=== PATIENT | female | born 1945 | race Caucasian/White ===

== ENCOUNTER 2019-11-01 12:26 | Inpatient (IN) | payer OTHER ==
--- OUTSIDE RECORDS SUMMARY | 2019-11-01 12:29 | XMS REPORT | Summary of Care ---
:1945 Author Organization [facility] [place] [address] Care Team Providers Name Role Phone Unavailable Primary Care Provider Unavailable Reason for Referral Consult, Test & Treat (Routine) Status Reason Specialty Diagnoses / Referred By Referred To Procedures Contact Contact Pending Consult, Test, Endocrinology Diagnoses Eugene's disease (HCCode) Sandra Dalton Endocrinology and Treat Procedures [place] OFFICE OUTPATIENT NEW 30 MINUTES MD Mirna [address]; [address] [place] [phone] Phone: Fax: Consult, Test & Treat (Routine) Status Reason Specialty Diagnoses / Referred By Referred To Procedures Contact Contact Pending Consult, Test, Cardiology Diagnoses Atrial fibrillation, unspecified type (HCCode) Congestive heart failure, unspecified HF chronicity, unspecified heart failure type (HCCode) Dyspnea, unspecified type Crow Dalton Cardiology and Treat Procedures [place] OFFICE OUTPATIENT NEW 30 MINUTES MD Mirna [address] [place] [phone] Phone: Fax: Reason for Visit Reason Comments Establish Care Dizziness bloating, MARCUS Encounter Details Date Type Department Care Team Description 08/11/2019 Office Visit [facility]; Medicine Family MD Mirna Dizziness (bloating, Medicine [address] MARCUS ) [address] [place] [address] [place] [address] Allergies Active Allergy Reactions Severity Noted Date Comments Ambien 12/24/2011 Etodolac 12/19/2009 documented as of this encounter (statuses as of 08/12/2019) Medications Medication Sig Dispensed Refills Start End Date Status Date Flavoxate HCl Take by mouth. 0 Active (URISPAS PO) Meth-Hyo-M Bl-Na 1 tablet Every 8 90 Each 3 Active Phos-Ph Ruddy (URELLE) hours for 30 2 81 MG TABS days. Take 1 tab every 8 hours as needed Meth-Hyo-M Bl-Na 81 mg 3 times 270 Each 0 Active Phos-Ph Ruddy (URELLE) daily for 90 2 81 MG TABS days. Take 1 tab every 8 hours predniSONE 0 Active (DELTASONE) 5 MG 9 tablet digoxin (LANOXIN) 125 0 Active MCG tablet 9 sumatriptan (IMITREX) Take 100 mg by 0 Active 100 MG tablet mouth. furosemide (LASIX) 40 TAKE 1 TABLET BY 0 Active MG tablet MOUTH EVERY DAY 9 levothyroxine Take 75 mcg by 0 Active (SYNTHROID) 75 MCG mouth. tablet DILT-XR 180 MG XR TAKE 1 CAPSULE 3 Active capsule BY MOUTH EVERY 9 DAY metoprolol Take 100 mg by 0 Active (LOPRESSOR) 100 MG mouth. tablet ELIQUIS 5 MG TABS TAKE 1 TABLET BY 2 Active MOUTH TWICE A 9 DAY gabapentin 0 Active (NEURONTIN) 300 MG 6 capsule venlafaxine Take 150 mg by 0 Active (EFFEXOR-XR) 150 MG mouth. XR capsule aspirin EC 81 MG Take 81 mg by 0 Active tablet mouth. gabapentin Take by mouth. 0 08/11/20 Discontinued (NEURONTIN) 600 MG 19 tablet quetiapine (SEROQUEL) Take by mouth. 0 09/26/20 Discontinued 50 MG tablet 19 Polyethylene Glycol Take by mouth. 0 08/11/20 Discontinued 3350 (MIRALAX PO) [address] 1 Drop 0 08/11/20 Discontinued (PRED FORTE) 1 % into the right 19 ophthalmic suspension eye two times daily. sumatriptan (IMITREX) Take 100 mg by 0 08/11/20 Discontinued 100 MG tablet mouth once as 19 needed. metoprolol Take 50 mg by 0 08/11/20 Discontinued (TOPROL-XL) 50 MG XL mouth daily. 19 tablet ergotamine-caffeine Take 1 Tab by 0 08/11/20 Discontinued (CAFERGOT) 1-100 MG mouth every hour 19 per tablet as needed. dihydroergotamine Inject 1 mg into 0 08/11/20 Discontinued (DHE) 1 MG/ML the vein once. 19 injection tramadol (ULTRAM) 50 One by mouth 5 Tab 0 01/20/08/11/20 Discontinued MG tablet every 4-6 hours [address] 1 Drop 5 mL 2 08/11/20 Discontinued (DUREZOL) 0.05 % into the left 2 19 ophthalmic emulsion eye two times daily. besifloxacin Place 1 Drop 5 mL 1 08/11/20 Discontinued (BESIVANCE) 0.6 % into the left 2 19 ophthalmic suspension eye two times daily. Shake well before instillation ketorolac Place 1 Drop 1 Bottle 0 08/11/20 Discontinued tromethamine (ACULAR into the left 2 19 LS) 0.4 % ophthalmic eye two times solution daily. LOSARTAN POTASSIUM OR Take by mouth. 0 08/11/20 Discontinued [address] 1 Drop 5 mL 1 07/21/08/11/20 Discontinued (BESIVANCE) 0.6 % into the left 2 19 ophthalmic eye 3 times suspensionIndications daily. : Refractive error, Myopia, Regular astigmatism tramadol (ULTRAM) 50 Take 1 Tab by 5 Tab 0 08/11/20 Discontinued MG tabletIndications: mouth. Q 4-6 2 19 Refractive error, hours Myopia, Regular astigmatism methenamine Take 1 Tab by 360 Each 3 03/01/08/11/20 Discontinued (MANDELAMINE) 1 GM mouth 4 times 4 19 tablet daily as needed for Pain. Methenamine Hippurate Take 1 Tab by 180 Each 3 08/11/20 Discontinued 1 G TABS mouth two times 4 19 daily. loteprednol (LOTEMAX) 1 Drop four 5 mL 2 08/11/20 Discontinued 0.5 % ophthalmic times daily. 5 19 suspensionIndications : Refractive error, Pseudophakia, both eyes moxifloxacin 1 Drop 3 times 5 mL 6 08/11/20 Discontinued (VIGAMOX) 0.5 % daily. 5 19 ophthalmic solutionIndications: Refractive error, Pseudophakia, both eyes alprazolam (NIRAVAM) Bring on day of 1 Tab 0 08/11/20 Discontinued 0.5 MG dissolvable surgery. 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 Evans Neurologist Polypharmacy 08/11/2019 Overview: Can decrease gabapentin to BID . Other chronic pain 08/11/2019 Overview: consider switch from effexor to cymbalta Bradycardia 08/11/2019 Overview: suspect digitalis toxicity Non-intractable vomiting with nausea 08/11/2019 Overview: suspect digitalis toxicity Subconjunctival hematoma 02/20/2016 Urinary urgency 03/01/2014 After-cataract, obscuring vision 11/30/2013 Pseudophakia, both eyes 11/30/2013 S/P ASA/PRK (advanced surface ablation photorefractive keratectomy) 01/31/2012 documented as of this encounter (statuses as of 08/12/2019) Resolved Problems Problem Noted Date Resolved Date Other and combined forms of senile cataract 04/14/2012 11/22/2012 Pseudophakia 01/31/2012 05/25/2015 documented as of this encounter (statuses as of 08/12/2019) Immunizations Name Administration Dates Next Due Influenza Hd 08/11/2019 Pneumococcal 13-valent Conjugate Vaccine 08/11/2019 documented as of this encounter Social History Tobacco Use Types Packs/Day Years Used Date Never Smoker Smokeless Tobacco: Never Used Alcohol Use Drinks/Week oz/Week Comments No Sex Assigned at Date Recorded Not on file Job Start Date Occupation Industry Not on file Not on file Not on file Travel History Travel Start Travel End No recent travel history available. documented as of this encounter Last Filed Vital Signs Vital Sign Reading Time Taken Comments Blood Pressure 108/60 08/11/2019 9:33 AM CDT Pulse 44 08/11/2019 9:33 AM CDT Temperature 36.1 C (97 F) 08/11/2019 9:33 AM CDT Respiratory Rate 16 08/11/2019 9:33 AM CDT Oxygen Saturation - - Inhaled Oxygen Concentration - - Weight 59.4 kg (131 lb) 08/11/2019 9:33 AM CDT Height 162.6 cm (5' 4") 08/11/2019 9:33 AM CDT Body Mass Index 22.49 08/11/2019 9:33 AM CDT documented in this encounter Progress Notes Mirna Dalton MD - 08/11/2019 9:30 AM CDT Chief Complaint Patient presents with Establish Care Dizziness bloating, MARCUS PCP: No primary care provider on file. History of Present Illness: Pilar Bass is a 74 y.o. female who is here today to discuss the following concerns: New patient. She is here really for second opinion regarding her care. Friends with Marya Kennedy who referred her to me. She complains of a big deterioration in her health over the last year. IT started with a hospitalization for CHF and Afib last September. She was hospitalized in [place]. She was started on cardiac medications including toprol xl 100, Diltiazem XR 180 and furosemide 40 mg and digoxin 0.125mg . Dr. Ramirez is her plate cleaner . She reports extreme weakness and lighhtheadedness and shortness of breath with walking 25 feet. She denies any falls or syncope. She does get chest pains but stress test did not reveal any significant CAD She is on multiple other medications On Gabapentin and effexor xr since 1982 for migraine prophylaxis Hypertension for last 10-15 years Has had dyspnea . Recently getting out of breath after 25 feet. 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 There was no work up performed She was having nausea and vomiting with negative EGD No visits with results within 3 Month(s) from this visit. Latest known visit with results is: Office Visit on 06/07/2012 Component Date Value Ref Range Status COLOR UA 06/07/2012 Green/Blue YELLOW/STRAW In process CLARITY UA 06/07/2012 Clear CLEAR In process GLUCOSE UA 06/07/2012 Negative NEGATIVE In process BILIRUBIN UA 06/07/2012 Negative NEGATIVE In process KETONES UA 06/07/2012 Negative NEGATIVE In process SPECIFIC GRAVITY UA 06/07/2012 1.000* 1.005 - 1.035 In process BLOOD UA 06/07/2012 Negative NEGATIVE In process PH UA 06/07/2012 5.0 5 - 9 In process PROTEIN UA 06/07/2012 Negative NEGATIVE In process UROBILINOGEN UA 06/07/2012 0.02 E.U/DL NORMAL MG/DL In process LEUKOCYTE ESTERASE UA 06/07/2012 Negative NEGATIVE In process NITRITE UA 06/07/2012 Negative NEGATIVE In process ROS: Review of Systems Constitutional: Positive for diaphoresis, malaise/fatigue and weight loss (5 pounds since February ). Negative for chills and fever. HENT: Negative for congestion, ear pain, hearing loss and nosebleeds. Eyes: Positive for blurred vision. Hx. Cataract surgery Cardiovascular: Positive for chest pain (left . Radiating to left arm and neck. Stress Test Last Fall Dr. Ramirez . CHF, AFIB ) and palpitations. AFIB . Thursday felt heart race but pulse max 131 Gastrointestinal: Positive for abdominal pain, nausea (Since February) and vomiting (last episode 2 weeks ago ). Negative for blood in stool, constipation and diarrhea. EGD this summer GI Dr. Matute. Normal.. After this Eugene's suspected . Some improvement with prednisone Genitourinary: Negative for dysuria and hematuria. Recent UTI (bacteriuria) Musculoskeletal: Positive for back pain, joint pain and neck pain. Hands, knees Skin: Negative for rash. No bronze skin Neurological: Positive for dizziness (light headed ), tremors, sensory change ( both legs . Rt. to the knee and left hurts to thigh ), focal weakness (left leg ), weakness and headaches (daily). Negative for seizures and loss of consciousness. EDS recently last month Lumbar spine Dr. Schultz. Pain medicine Endo/Heme/Allergies: Prednisone started by PCP mfor possible Addisons Psychiatric/Behavioral: Positive for depression. Negative for memory loss and suicidal ideas. The patient is nervous/anxious and has insomnia. 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 Hospitalized to withdraw DATA Reciewed : Recent EGD gastritis, Recent labs, Hospital records. EKG performed this am shows digitalis effect vs strain pattern, Afib and bradycardia with rate of 44 Past Medical History/Past Social History/Family History: I have personally reviewed this patient's past medical history, social history, family history and have updated the computerized patient record accordingly. Past Medical History: Diagnosis Date Cataract Depression Hypertension Migraines Night sweat Pinched nerve Pinched nerve in Neck Past Surgical History: Procedure Laterality Date HX BACK SURGERY 10/2013 HX CATARACT REMOVAL HX GALLBLADDER SURGERY 2001 HX HAND SURGERY HX HYSTERECTOMY 1980 HX KNEE SURGERY 2008 HX PRK 07-23-2012 left eye HX PRK 2015 right eye [place] DISCISSION,2ND CATARACT,LASER Right 04/06/2014 VT EYE SURG ANT SGMT PROC UNLISTED 01-30-2012 CV PRK, right eye [place] REMV CATARACT EXTRACAP,INSERT LENS 05/27/2012 Social History Tobacco Use Smoking status: Never Smoker Smokeless tobacco: Never Used Substance Use Topics Alcohol use: No Drug use: No Current Outpatient Medications on File Prior to Visit Medication Sig Dispense Refill aspirin EC 81 MG tablet Take 81 mg by mouth. digoxin (LANOXIN) 125 MCG tablet DILT-XR 180 MG XR capsule TAKE 1 CAPSULE BY MOUTH EVERY DAY 3 ELIQUIS 5 MG TABS TAKE 1 TABLET BY MOUTH TWICE A DAY 2 Flavoxate HCl (URISPAS PO) Take by mouth. furosemide (LASIX) 40 MG tablet TAKE 1 TABLET BY MOUTH EVERY DAY 0 gabapentin (NEURONTIN) 300 MG capsule levothyroxine (SYNTHROID) 75 MCG tablet Take 75 mcg by mouth. Meth-Hyo-M Bl-Na Phos-Ph Ruddy (URELLE) 81 MG TABS 81 mg 3 times daily for 90 days. Take 1 tab every 8 hours 270 Each 0 Meth-Hyo-M Bl-Na Phos-Ph Ruddy (URELLE) 81 MG TABS 1 tablet Every 8 hours for 30 days. Take 1 tab every 8 hours as needed 90 Each 3 metoprolol (LOPRESSOR) 100 MG tablet Take 100 mg by mouth. predniSONE (DELTASONE) 5 MG tablet sumatriptan (IMITREX) 100 MG tablet Take 100 mg by mouth. venlafaxine (EFFEXOR-XR) 150 MG XR capsule Take 150 mg by mouth. No current facility-administered medications on file prior to visit. Medications/Allergies: reviewed and updated as needed at today's visit. Physical Examination: BP 108/60 (BP Location: left arm, Patient Position: Sitting, Cuff Size: regular ) | Pulse (!) 44 | Temp 97 F (36.1 C) (Oral) | Resp 16 | Ht 5' 4" ( 1.626 m) | Wt 131 lb (59.4 kg) | BMI 22.49 kg/m Nursing note and vital signs reviewed. Physical Exam Constitutional: She is oriented to person, place, and time and well-developed, well-nourished, and in no distress. No distress. HENT: Head: Normocephalic and atraumatic. Eyes: Conjunctivae and EOM are normal. Neck: Neck supple. No thyromegaly present. Cardiovascular: Normal heart sounds and intact distal pulses. Exam reveals no gallop and no frictionrub. No murmur heard. Bradycardia. Irregularly irregular rhythm Pulmonary/Chest: Effort normal and breath sounds normal. No respiratory distress. She has no wheezes. She has no rales. She exhibits no tenderness. Abdominal: Soft. Musculoskeletal: She exhibits no edema. Lymphadenopathy: She has no cervical adenopathy. Neurological: She is alert and oriented to person, place, and time. She has intact cranial nerves. She displays tremor. A sensory deficit is present. Gait abnormal. Decreased sensation both lower legs/ feet Skin: Skin is warm and dry. No rash noted. She is not diaphoretic. Psychiatric: Affect normal. Impression/Plan: Encounter Diagnosis and Orders ICD-10-CM 1. Dyspnea, unspecified type R06.00 AMB REF TO CARDIOLOGY [facility] 2. Atrial fibrillation, unspecified type (HCCode) I48.91 AMB REF TO CARDIOLOGY [facility] ELECTROCARDIOGRAM COMPLETE DIGOXIN LEVEL COMPREHENSIVE METABOLIC PANEL Appointment Oct 3 with [facility] cardiology. Question for Cardiology re need for digoxin 3. Congestive heart failure, unspecified HF chronicity, unspecified heart failure type (HCCode) I50.9 AMB REF TO CARDIOLOGY [facility] DIGOXIN LEVEL COMPREHENSIVE METABOLIC PANEL Request ECHO results 4. Need for influenza vaccination Z23 FLU VACCINE HIGH DOSE >65YO 5. 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 Tremor R25.[address] Evans Neurologist 7. Polypharmacy Z79.899 Can decrease gabapentin to BID . 8. Other chronic pain G89.29 consider switch from effexor to cymbalta 9. Need for pneumococcal vaccination Z23 PNEUMOCOCCAL CONJUGATED (PCV13) 10. Bradycardia R00.1 suspect digitalis toxicity 11. Non-intractable vomiting with nausea, unspecified vomiting type R11.2 suspect digitalis toxicity Please see AVS for patient instructions. All questions answered. Patient agrees with plan of care. Mirna Dalton MD Drug Abuse Technician [facility] HospitalElectronically signed by Mirna Dalton MD at 10:47 AM CDTdocumented in this encounter Plan of Treatment Date Type Specialty Care Team Description 08/18/2019 Office Visit Cardiology Cash Sahni MD [address] [address] Name Type Priority Associated Diagnoses Order Schedule DIGOXIN LEVEL Lab Routine Atrial Fibrillation, Ordered: 08/11/2019 Unspecified Type (Hccode) Congestive Heart Failure, Unspecified Hf Chronicity, Unspecified Heart Failure Type (Hccode) COMPREHENSIVE METABOLIC Lab Routine Atrial Fibrillation, Ordered: 2018 PANEL Unspecified Type (Hccode) Congestive Heart Failure, Unspecified Hf Chronicity, Unspecified Heart Failure Type (Hccode) Name Type Priority Associated Order Schedule Diagnoses AMB REF TO CARDIOLOGY Outpatient Referral Routine Atrial Ordered: [facility] Fibrillation, 08/11/2019 Unspecified Type (Hccode) Congestive Heart Failure, Unspecified Hf Chronicity, Unspecified Heart Failure Type (Hccode) Dyspnea, Unspecified Type AMB REF TO Outpatient Referral Routine Lincoln's disease Ordered: [facility]Y [facility] 08/11[facility]2019 Health Maintenance Due Date Last Done Comments MEDICARE AWV 1945 HEPATITIS C SCREENING 1963 OSTEOPOROSIS SCREENING 2010 MAMMOGRAM ANNUAL 12/17/2019 12/17/2018 FALL SCREEN 08/11/2020 08/11/2019, 08/11/2019 COLON CANCER SCREENING: COLONOSCOPY 11/16/2025 11/16/2015 TETANUS SHOT (ADULT) 11/16/2026 11/16/2016 PNEUMOVAX >=65 (PPSV23) Completed 10/13/2018 FLU VACCINE > 6 MONTHS Completed 08/11/2019, 08/11/2019 PREVNAR >=65 (PCV13) Completed 08/11/2019, 08/11/2019 documented as of this encounter Implants Implanted Type Area Registered Nursing Professor Device Shelf Model / Serial Identifier Expiration / Lot Date Iol - [id number] - [id number] LENS Left: Eye JOHN 06/15/2016 21.0 D / Implanted: Qty: 1 on 05/27/2012 at [facility] [id number] / documented as of this encounter Procedures Procedure Name Priority Date/Time Associated Comments Diagnosis ELECTROCARDIOGRAM Routine 08/11/2019 10:46 Atrial Results for this COMPLETE AM CDT fibrillation, procedure are in unspecified type the results (HCCode) section. documented in this encounter Results ELECTROCARDIOGRAM COMPLETE (08/11/2019 10:46 AM CDT) Specimen Narrative Performed At documented in this encounter Visit Diagnoses Diagnosis Dyspnea, unspecified type - Primary Atrial fibrillation, unspecified type (HCCode) Congestive heart failure, unspecified HF chronicity, unspecified heart failure type (HCCode) Need for influenza vaccination Need for prophylactic vaccination and inoculation against influenza Lincoln's disease (HCCode) Glucocorticoid deficiency Tremor Abnormal involuntary movements Polypharmacy Issue of repeat prescriptions Other chronic pain Need for pneumococcal vaccination Need for prophylactic vaccination against streptococcus pneumoniae ( pneumococcus) Bradycardia Other specified cardiac dysrhythmias Non-intractable vomiting with nausea, unspecified vomiting type documented in this encounter Insurance Payer Benefit Plan / Subscriber ID Effective Dates Phone Address Type Group [employer] MED[employer]ARE PLAN PPO xxxxxxxx 2013-Present [address] [place] [address] ([place]) [address] [place] [id number] documented as of this encounter
--- OUTSIDE RECORDS SUMMARY | 2019-11-01 12:29 | XMS REPORT ---
:1945 [facility] Address [address] [place] [address] Care Team Providers Name Role Phone Unavailable Unavailable Unavailable Payers Payer Name Policy Type Policy Number Effective Date Expiration Date Problems This patient has no known problems. Allergies, Adverse Reactions, Alerts Allergy Allergy Status Severity Reaction(s) Onset Inactive Treating Comments Name Type Date Date Clinician etodolac DA Active U 2014-01 00:00:0 0 zolpidem DA Active U 2014-01 00:00:0 0 Medications This patient has no known medications. Results Test Description Test Time Test Comments Text Results Atomic Results Result Comments CBC W/AUTO DIFF 2019-05-07 06:27:00 Test Item Value Reference Range Comments WHITE BLOOD CELL (test code=WBC) 9.5 K/MM3 3.8-9.8 RED BLOOD CELL (test code=RBC) 3.33 M/MM3 3.58-4.97 HEMOGLOBIN (test code=HGB) 11.3 G/DL 11.2-14.9 HEMATOCRIT (test code=HCT) 36.5 % 33.2-43.5 MEAN CELL VOLUME (test code=MCV) 110 fL 80.7-99.1 MEAN CELL HGB (test code=MCH) 33.9 pg 27.0-34.1 MEAN CELL HGB CONCETRATION (test code=MCHC) 31.0 % 32.2-35.7 RED CELL DISTRIBUTION WIDTH (test code=RDW) 18.6 % 12.1-15.2 PLATELET COUNT (test code=PLT) 168 K/MM3 129-368 MEAN PLATELET VOLUME (test code=MPV) 10.4 fl 7.4-10.4 NEUTROPHIL % (test code=NT%) 56.0 % 43-75 IMMATURE GRANULOCYTE % (test code=IG%) 0.4 % 0.0-2.0 LYMPHOCYTE % (test code=LY%) 32.2 % 14-44 MONOCYTE % (test code=MO%) 7.8 % 4-13 EOSINOPHIL % (test code=EO%) 3.1 % 0-6 BASOPHIL % (test code=BA%) 0.5 % 0-2 NUCLEATED RBC % (test code=NRBC%) 1.5 % 0-1.0 NEUTROPHIL # (test code=NT#) 5.29 K/mm3 2.0-7.6 IMMATURE GRANULOCYTE # (test code=IG#) 0.04 x10 3/uL 0-0.03 LYMPHOCYTE # (test code=LY#) 3.05 K/mm3 1.0-3.8 MONOCYTE # (test code=MO#) 0.74 K/mm3 0.1-0.8 EOSINOPHIL # (test code=EO#) 0.29 K/mm3 0.0-0.2 BASOPHIL # (test code=BA#) 0.05 K/mm3 0.0-0.2 NUCLEATED RBC # (test code=NRBC#) 0.14 K/mm3 0.0-0.1 NUCLEATED RED BLOOD CELL (test code=NRBC) 3 0-0 DIFFERENTIAL [id number] 06:27:00 Test Item Value Reference Range Comments RBC MORPHOLOGY REQUIRED (test code=RBCM) ABNORMAL POIKILOCYTOSIS (test code=POIK) FEW NONE ANISOCYTOSIS (test code=ANISO) MODERATE NONE MACROCYTOSIS (test code=MACR) FEW NONE PLATELET ESTIMATE (test code=PLTEST) ADEQUATE ADEQUATE PLATELET MORPHOLOGY (test code=PLTMORPH) NORMAL NORMAL BASIC METABOLIC [id number] 06:14:00 Test Item Value Reference Range Comments SODIUM (test code=NA) 145 MMOL/L 137-145 POTASSIUM (test code=K) 5.1 MMOL/L 3.5-5.1 CHLORIDE (test code=CL) 106 MMOL/L 98-107 CARBON DIOXIDE (test code=CO2) 26 MMOL/L 22-30 ANION GAP (test code=GAP) 18 MMOL/L 14-24 GLUCOSE (test code=GLU) 96 MG/DL 74-106 BLOOD UREA NITROGEN (test 30 MG/DL 7-17 code=BUN) GLOMERULAR FILTRATION RATE 37 Reporting units: ml/min/1.73 (test code=GFR) m2 (Modified MDRD Formula)Reference Range: > or=60 ml/min/1.73 m2 CREATININE (test code=CREAT) 1.40 MG/DL 0.52-1.04 CALCIUM (test code=CA) 9.9 MG/DL 8.4-10.2 LIPID PROFILE (CORONARY RISK)2019-05-07 06:14:00 Test Item Value Reference Range Comments TRIGLYCERIDES (test code=TRIG) 176 MG/DL TRIGLYCERIDES REFERENCE RANGE:Normal: <150 mg/dLBorderline High: 150-199 mg/dLHigh: 200-499 mg/dLVery High: >=500 mg/dL CHOLESTEROL (test code=CHOL) 156 MG/DL <200 HDL CHOLESTEROL (test 34 MG/DL 40-59 code=HDL) LIPOPROTEIN LDL (test 109 MG/DL 0-99 code=LDL) OPTIMAL.........<100 mg/dLNEAR OPTIMAL/ABOVE OPTIMAL.........100-129 mg/dL BORDERLINE HIGH.........130-159 mg/dL HIGH.........160-189 mg/dL VERY HIGH.........>/=190 mg/dL [id number] 06:14:00 Test Item Value Reference Range Comments MAGNESIUM (test code=MAG) 2.3 MG/DL 1.6-2.3 BASIC METABOLIC [id number] 06:04:00 Test Item Value Reference Range Comments SODIUM (test code=NA) 145 MMOL/L 137-145 POTASSIUM (test code=K) 5.1 MMOL/L 3.5-5.1 CHLORIDE (test code=CL) 106 MMOL/L 98-107 CARBON DIOXIDE (test code=CO2) 26 MMOL/L 22-30 ANION GAP (test code=GAP) 18 MMOL/L 14-24 GLUCOSE (test code=GLU) 96 MG/DL 74-106 BLOOD UREA NITROGEN (test 30 MG/DL 7-17 code=BUN) GLOMERULAR FILTRATION RATE 37 Reporting units: ml/min/1.73 (test code=GFR) m2 (Modified MDRD Formula)Reference Range: > or=60 ml/min/1.73 m2 CREATININE (test code=CREAT) 1.40 MG/DL 0.52-1.04 CALCIUM (test code=CA) 9.9 MG/DL 8.4-10.2 LIPID PROFILE (CORONARY RISK)2019-05-07 06:04:00 Test Item Value Reference Range Comments TRIGLYCERIDES (test code=TRIG) 176 MG/DL TRIGLYCERIDES REFERENCE RANGE:Normal: <150 mg/dLBorderline High: 150-199 mg/dLHigh: 200-499 mg/dLVery High: >=500 mg/dL CHOLESTEROL (test code=CHOL) 156 MG/DL <200 HDL CHOLESTEROL (test 34 MG/DL 40-59 code=HDL) LIPOPROTEIN LDL (test MG/DL 0-99 code=LDL) [id number] 06:04:00 Test Item Value Reference Range Comments MAGNESIUM (test code=MAG) 2.3 MG/DL 1.6-2.3 PROTHROMBIN [id number] 05:56:00 Test Item Value Reference Range Comments PROTHROMBIN TIME PATIENT (test 10.4 SECONDS 9.6-11.6 code=PTP) INTERNATIONAL NORMAL RATIO 1.0 0.8-1.1 The INR is to be used only (test code=INR) for monitoring oral anticoagulanttherapy. INDICATION INR VALUE 1. Prophylaxis, deep venous thrombosis, including high risk surgery. 2.0 - 3.0 2. Prophylaxis, deep venous thrombosis, hip surgery, treatment for deep venous thrombosis or pulmonary prevention of systemic embolism in patients with valvular heart disease, atrial fibrillation, tissue heart valve, or acute myocardial infarction. 2.0 - 3.0 3. Mechanical prosthesis heart valves, recurrent systemic embolism. 3.0 - 4.5 PTT [id number] 05:56:00 Test Item Value Reference Range Comments PTT ACTIVATED (test code=APTT) 23.1 SECONDS 22.0-33.0 CBC W/AUTO [id number] 05:40:00 Test Item Value Reference Range Comments WHITE BLOOD CELL (test code=WBC) 9.5 K/MM3 3.8-9.8 RED BLOOD CELL (test code=RBC) 3.33 M/MM3 3.58-4.97 HEMOGLOBIN (test code=HGB) 11.3 G/DL 11.2-14.9 HEMATOCRIT (test code=HCT) 36.5 % 33.2-43.5 MEAN CELL VOLUME (test code=MCV) 110 fL 80.7-99.1 MEAN CELL HGB (test code=MCH) 33.9 pg 27.0-34.1 MEAN CELL HGB CONCETRATION (test code=MCHC) 31.0 % 32.2-35.7 RED CELL DISTRIBUTION WIDTH (test code=RDW) 18.6 % 12.1-15.2 PLATELET COUNT (test code=PLT) 168 K/MM3 129-368 MEAN PLATELET VOLUME (test code=MPV) 10.4 fl 7.4-10.4 NEUTROPHIL % (test code=NT%) 56.0 % 43-75 IMMATURE GRANULOCYTE % (test code=IG%) 0.4 % 0.0-2.0 LYMPHOCYTE % (test code=LY%) 32.2 % 14-44 MONOCYTE % (test code=MO%) 7.8 % 4-13 EOSINOPHIL % (test code=EO%) 3.1 % 0-6 BASOPHIL % (test code=BA%) 0.5 % 0-2 NUCLEATED RBC % (test code=NRBC%) 1.5 % 0-1.0 NEUTROPHIL # (test code=NT#) 5.29 K/mm3 2.0-7.6 IMMATURE GRANULOCYTE # (test code=IG#) 0.04 x10 3/uL 0-0.03 LYMPHOCYTE # (test code=LY#) 3.05 K/mm3 1.0-3.8 MONOCYTE # (test code=MO#) 0.74 K/mm3 0.1-0.8 EOSINOPHIL # (test code=EO#) 0.29 K/mm3 0.0-0.2 BASOPHIL # (test code=BA#) 0.05 K/mm3 0.0-0.2 NUCLEATED RBC # (test code=NRBC#) 0.14 K/mm3 0.0-0.1 DIFFERENTIAL [id number] 05:40:00 Test Item Value Reference Range Comments RBC MORPHOLOGY REQUIRED (test code=RBCM) PLATELET ESTIMATE (test code=PLTEST) ADEQUATE PLATELET MORPHOLOGY (test code=PLTMORPH) NORMAL CBC W/AUTO [id number] 05:40:00 Test Item Value Reference Range Comments WHITE BLOOD CELL (test code=WBC) 9.5 K/MM3 3.8-9.8 RED BLOOD CELL (test code=RBC) 3.33 M/MM3 3.58-4.97 HEMOGLOBIN (test code=HGB) 11.3 G/DL 11.2-14.9 HEMATOCRIT (test code=HCT) 36.5 % 33.2-43.5 MEAN CELL VOLUME (test code=MCV) 110 fL 80.7-99.1 MEAN CELL HGB (test code=MCH) 33.9 pg 27.0-34.1 MEAN CELL HGB CONCETRATION (test code=MCHC) 31.0 % 32.2-35.7 RED CELL DISTRIBUTION WIDTH (test code=RDW) 18.6 % 12.1-15.2 PLATELET COUNT (test code=PLT) 168 K/MM3 129-368 MEAN PLATELET VOLUME (test code=MPV) 10.4 fl 7.4-10.4 NEUTROPHIL % (test code=NT%) 56.0 % 43-75 IMMATURE GRANULOCYTE % (test code=IG%) 0.4 % 0.0-2.0 LYMPHOCYTE % (test code=LY%) 32.2 % 14-44 MONOCYTE % (test code=MO%) 7.8 % 4-13 EOSINOPHIL % (test code=EO%) 3.1 % 0-6 BASOPHIL % (test code=BA%) 0.5 % 0-2 NUCLEATED RBC % (test code=NRBC%) 1.5 % 0-1.0 NEUTROPHIL # (test code=NT#) 5.29 K/mm3 2.0-7.6 IMMATURE GRANULOCYTE # (test code=IG#) 0.04 x10 3/uL 0-0.03 LYMPHOCYTE # (test code=LY#) 3.05 K/mm3 1.0-3.8 MONOCYTE # (test code=MO#) 0.74 K/mm3 0.1-0.8 EOSINOPHIL # (test code=EO#) 0.29 K/mm3 0.0-0.2 BASOPHIL # (test code=BA#) 0.05 K/mm3 0.0-0.2 NUCLEATED RBC # (test code=NRBC#) 0.14 K/mm3 0.0-0.1 DIFFERENTIAL [id number] 05:40:00 Test Item Value Reference Range Comments RBC MORPHOLOGY REQUIRED (test code=RBCM) PLATELET ESTIMATE (test code=PLTEST) ADEQUATE PLATELET MORPHOLOGY (test code=PLTMORPH) NORMAL
--- OUTSIDE RECORDS SUMMARY | 2019-11-01 12:29 | XMS REPORT | Summary of Care ---
:1945 Author Organization [facility] - [facility] Address [address] [place] [address] Care Team Providers Name Role Phone Adryan Breen MD Primary Care Provider Reason for Referral MRI/CAT Scan (STAT) Status Reason Specialty Diagnoses / Referred By Referred To Procedures Contact Contact New Request Diagnostic Diagnoses SOB (shortness of breath) Ben Meeks, Radiology Procedures CT HEAD WO CONTRAST [address] [place], [place] [id number] MRI/CAT Scan (STAT) Status Reason Specialty Diagnoses / Referred By Referred To Procedures Contact Contact New Request Diagnostic Diagnoses SOB (shortness of breath) Ben Meeks, Radiology Procedures CT HEAD WO CONTRAST [address] [place] [address] Radiology Services (STAT) Status Reason Specialty Diagnoses / Referred By Referred To Procedures Contact Contact New Request Diagnostic Diagnoses SOB (shortness of breath) Ben Meeks, Radiology Procedures XR CHEST 1 KYM HORNER [address] [place] [address] Radiology Services (STAT) Status Reason Specialty Diagnoses / Referred By Referred To Procedures Contact Contact New Request Diagnostic Diagnoses SOB (shortness of breath) Ben Meeks, Radiology Procedures XR CHEST 1 KYM HORNER [address] [place] [address] Reason for Visit Reason Comments Shortness of Breath Chest Pain Auth/Cert Status Reason Specialty Diagnoses / Referred By Referred To Procedures Contact Contact Emergency Medicine Diagnoses SOB [facility] [address] [place] [address] [place] [address] Encounter Details Date Type Department Care Team Description 07/24/2019 Emergency [facility] Ben Meeks MD SOB (shortness of breath) (Primary Dx); Department [address] [facility] Dizziness; [address] [facility] [address] Urinary tract infection [place] [address] [place] [address] [phone] Allergies Active Allergy Reactions Severity Noted Date Comments Zolpidem Tartrate Other - See comments 02/18/2016 Disoriented Etodolac Itching 02/18/2016 documented as of this encounter (statuses as of 07/24/2019) Medications Medication Sig Dispensed Refills Start Date End Date Status sumatriptan (IMITREX) Take 100 mg by 0 Active 100 mg tablet mouth. doxazosin (CARDURA) 2 Take 2 mg by 3 01/24/2016 Active mg tablet mouth at bedtime. gabapentin (NEURONTIN) 2 01/28/2016 Active 300 mg capsule venlafaxine XR (EFFEXOR Take 150 mg by 0 Active XR) 150 mg 24 hr mouth daily with capsule breakfast. doxazosin (CARDURA) 2 Take 2 mg by 0 Active mg tablet mouth daily. CALCIUM Take by mouth. 0 Active CARBONATE/VITAMIN D3 (VITAMIN D-3 ORAL) MAGNESIUM ORAL Take by mouth. 0 Active promethazine-codeine Take 5 mL by 120 mL 0 01/03/2018 Active 6.25-10 mg/5 mL syrup mouth 4 (four) times daily as needed for Cough. sod vywqa-wiptfs-gbllfa Use 1 Bottle in 1 Each 0 01/03/2018 Active bottle (NEILMED SINUS each nostril 2 RINSE COMPLETE) pkdv (two) times daily. Use in hot shower 1 hour before bedtime multivitamin tablet Take 1 tablet by 0 Active mouth daily. metoprolol tartrate 100 Take 100 mg by 0 Active mg tablet mouth 2 (two) times daily. diltiazem XR (DILT-XR) Take 180 mg by 0 Active 180 mg 24 hr capsule mouth daily. aspirin 81 mg chewable Take 81 mg by 0 Active tablet mouth daily. levothyroxine 75 mcg Take 75 mcg by 0 Active tablet mouth every morning. furosemide 40 mg tablet Take 40 mg by 0 Active mouth every other day. Hydrocodone-Acetaminoph Take 1 tablet by 0 Active en 7.5-300 mg tablet mouth 2 (two) times daily. apixaban (ELIQUIS) 5 mg Take 5 mg by 0 Active tablet mouth 2 (two) times daily. amoxicillin 500 mg Take 1 capsule 15 capsule 0 07/24/2019 Active capsuleIndications: by mouth 3 Urinary tract infection (three) times without hematuria, site daily. unspecified documented as of this encounter (statuses as of 07/24/2019) Active Problems Problem Noted Date Acute diastolic CHF (congestive heart failure) 10/13/2018 Atrial fibrillation with RVR 10/13/2018 CHF (congestive heart failure) 10/10/2018 Hip pain, right 02/18/2016 documented as of this encounter (statuses as of 07/24/2019) Immunizations Name Administration Dates Next Due Pneumococcal Polysaccharide, PPSV23 (PNEUMOVAX) 10/13/2018 documented as of this encounter Social History Tobacco Use Types Packs/Day Years Used Date Never Smoker Smokeless Tobacco: Never Used Alcohol Use Drinks/Week oz/Week Comments Not Asked 0 Standard drinks or equivalent 0.0 Sex Assigned at Date Recorded Not on file Job Start Date Occupation Industry Not on file Not on file Not on file Travel History Travel Start Travel End No recent travel history available. documented as of this encounter Last Filed Vital Signs Vital Sign Reading Time Taken Comments Blood Pressure 152/97 07/24/2019 3:15 PM CDT Pulse 68 07/24/2019 3:15 PM CDT Temperature 36.9 C (98.5 F) 07/24/2019 12:48 PM CDT Respiratory Rate 13 07/24/2019 2:20 PM CDT Oxygen Saturation 96% 07/24/2019 2:20 PM CDT Inhaled Oxygen Concentration - - Weight 56.7 kg (125 lb) 07/24/2019 12:48 PM CDT Height - - Body Mass Index 21.46 04/15/2019 11:00 AM CDT documented in this encounter Discharge Instructions InstructionsBen Meeks MD - 07/24/2019 RETURN FOR ANY QUESTIONS OR CONCERNS Today you were seen by Ben Meeks Jr., MD You were seen today for Chief Complaint Patient presents with Shortness of Breath Chest Pain Your ER diagnosis was ICD-10-CM ICD-9-CM 1. SOB (shortness of breath) R06.02 786.05 2. Dizziness R42 780.4 NO LIFE-THREATENING FINDINGS ON TODAY'S EXAM. YOUR PRESCRIPTIONS : Check out [employer] for medication discounts Medication List ASK your doctor about these medications aspirin 81 mg chewable tablet DILT-XR 180 mg 24 hr capsule Generic drug: diltiazem XR * doxazosin 2 mg tablet Commonly known as: CARDURA * doxazosin 2 mg tablet Commonly known as: CARDURA ELIQUIS 5 mg tablet Generic drug: apixaban furosemide 40 mg tablet Commonly known as: LASIX gabapentin 300 mg capsule Commonly known as: NEURONTIN Hydrocodone-Acetaminophen 7.5-300 mg tablet Commonly known as: XODOL 7.5/300 levothyroxine 75 mcg tablet Commonly known as: SYNTHROID MAGNESIUM ORAL metoprolol tartrate 100 mg tablet Commonly known as: LOPRESSOR multivitamin tablet promethazine-codeine 6.25-10 mg/5 mL syrup Commonly known as: PHENERGAN with CODEINE Take 5 mL by mouth 4 (four) times daily as needed for Cough. sod ceexx-rykgfb-pkpaod bottle Pkdv Commonly known as: NEILMED SINUS RINSE COMPLETE Use 1 Bottle in each nostril 2 (two) times daily. Use in hot shower 1 hour before bedtime sumatriptan 100 mg tablet Commonly known as: IMITREX venlafaxine XR 150 mg 24 hr capsule Commonly known as: EFFEXOR XR VITAMIN D-3 ORAL * This list has 2 medication(s) that are the same as other medications prescribed for you. Read thedirections carefully, and ask your doctor or other care provider to review them with you. ER precautions and follow up : 1. Return to ER if your symptoms should worsen or fail to improve within 72 hours. 2. The care provided in the emergency room was for acute problems only. 3. You should follow up with your primary care provider within 72 hours. 4. Fill and take all your medications as prescribed. 5. Make sure you are staying adequately hydrated. Busque attencion immediatamente si usted tiene los sitomas sigue, vuelve peor o si hay sitomas nuevas o para cualquiera preoccupacion incluyendo dolor del pecho , falta aire, se siente debile, mas fievre, mas dolor, nausea, vomitando, sangrando que no es normal, confusion, baja or pierdas conciencia. MAY FOLLOW-UP WITH A PROVIDER OF YOUR CHOICE, SUCH : 1. A PHYSICIAN OF YOUR CHOICE 2. [facility], . LOCATIONS IN [facility] 3. [facility], [address], [place]; [phone] OR, IF YOU WISH TO FOLLOW-UP WITHIN THE [facility], MAY TRY THESE OPTIONS (CLINIC APPOINTMENTS AVAILABLE ON [id number] BASIS): 1. SCHEDULE AN APPOINTMENT ONLINE AT WWW.[facility] 2. OR CALL THE [facility] ACCESS CENTER AT OR 3. OR CALL YOUR [facility] PHYSICIAN'S OFFICE DIRECTLY IF YOU ARE ALREADY AN ESTABLISHED [facility] PATIENT. [facility] RETURN TO WORK / SCHOOL EXCUSE Pilar Bass WAS SEEN IN THE ER AND DISCHARGED 07/24/2019 TODAY, 3:19 PM & May return to Work / School / Incarceration on X with activity as tolerated indicated below. ___The following limitations apply until pt is seen by Physician and cleared to return to normal activity. _X_ Off for two days and return to activity as tolerated at work or school ___ No Sports ___ No work ___ Do not return until fever free for 24 hours. ___ No school BEN MEEKS Jr., MD [facility] EMERGENCY DEPRTMENT [address] [place] [address] [place] [address] ### The patient may have been given Narcotic pain medications during their stay in the ED that may show up on a Drug Screen. The hospital discharge paper work will identify these medications. AttachmentsThe following attachments cannot be sent through Care Everywhere.Dizziness, Uncertain Cause ([place])Bladder Infection, Female (Adult ) ([place])Urinary Tract Infections in Women ([place])documented in this encounter Plan of Treatment Health Maintenance Due Date Last Done Comments HEPATITIS C (HCV) SCREEN 1945 DTaP,Tdap,and Td Vaccines (1 - Tdap) 1964 MAMMOGRAM 1985 COLONOSCOPY 1995 Zoster Recombinant Vaccine (SHINGRIX) (1 of 2) 1995 Medicare Wellness Visit 2010 INFLUENZA VACCINE (#1) 2019 PNEUMOCOCCAL VACCINES 65+ (2 of 2 - PCV13) 10/13/2019 10/13/2018 Osteoporosis Screening Completed 04/06/2019 documented as of this encounter Procedures Procedure Name Priority Date/Time Associated Comments Diagnosis URINALYSIS STAT 07/24/2019 2:16 SOB (shortness of Results for this PM CDT breath) procedure are in the results section. CT HEAD WO CONTRAST STAT 07/24/2019 1:37 SOB (shortness of Results for this PM CDT breath) procedure are in the results section. XR CHEST 1 VW STAT 07/24/2019 1:32 SOB (shortness of Results for this PM CDT breath) procedure are in the results section. DIGOXIN STAT 07/24/2019 1:21 SOB (shortness of Results for this PM CDT breath) procedure are in the results section. CBC WITH DIFFERENTIAL STAT 07/24/2019 1:03 SOB (shortness of Results for this PM CDT breath) procedure are in the results section. ACTIVATED PARTIAL STAT 07/24/2019 1:03 SOB (shortness of Results for this THRMPLAS [place] PM CDT breath) procedure are in the results section. PROTHROMBIN TIME / STAT 07/24/2019 1:03 SOB (shortness of Results for this INR PM CDT breath) procedure are in the results section. CBC WITH DIFF Routine 07/24/2019 1:03 SOB (shortness of Results for this PM CDT breath) procedure are in the results section. COMP. METABOLIC PANEL STAT 07/24/2019 1:03 SOB (shortness of Results for this (36528) PM CDT breath) procedure are in the results section. TROPONIN I STAT 07/24/2019 1:03 SOB (shortness of Results for this PM CDT breath) procedure are in the results section. LIPASE STAT 07/24/2019 1:03 SOB (shortness of Results for this PM CDT breath) procedure are in the results section. EKG-12 LEAD STAT 07/24/2019 12:56 PM CDT documented in this encounter Results URINALYSIS (07/24/2019 2:16 PM CDT) APPEARANCE Clear Clear [facility] COLOR Confluence (A) Yellow [facility] PH 7.0 4.8 - 8.0 [facility] SP GRAVITY <=1.005 1.003 - 1.030 [facility] GLU U QUAL Negative Negative [facility] BLOOD Negative Negative [facility] KETONES Negative Negative [facility] PROTEIN Negative Negative [facility] UROBILIN 1.0 mg/dL 0-1.0 mg/dL [facility] BILIRUBIN Negative Negative [facility] NITRITE Positive (A) Negative [facility] LEUK GLORIA Negative Negative [facility] RBC/HPF 0 0 - 3 HPF [facility] WBC/HPF 0 0 - 5 HPF [facility] BACTERIA Negative Negative [facility] AMORPHOUS Trace HPF [facility] SQ EPITH 2 HPF [facility] Specimen Urine - URINE, CLEAN CATCH Performing Organization Address City/State/Zipcode Phone Number [facility] CLIA: [id number], [address] [place] [address] HEAD WO CONTRAST (07/24/2019 1:37 PM CDT) Specimen Impressions Performed At PACS/VR/DOSE No acute intracranial abnormality. I, Josias Corbett MD., have reviewed this study and agree with the above report. Narrative Performed At CT HEAD WO CONTRAST PACS/VR/DOSE HISTORY: Dizziness, persistent/recurrent, cardiac or vascular cause suspected COMPARISON: None TECHNIQUE: Noncontrast CT imaging of the head was performed and coronal and sagittal reconstructions were obtained and reviewed. FINDINGS: The ventricles and cerebral sulci are normal in caliber and configuration. No hydrocephalus, midline shift or pathological extra-axial fluid collection is present. Prominent subarachnoid spaces are seen. The basal cisterns are unremarkable. There is no acute intracranial hemorrhage or significant mass effect. Scattered periventricular and deep white matter hypoattenuating foci represent chronic microvascular ischemic changes. The archibald-white matter differentiation is preserved. Left sphenoid sinus retention cyst noted The mastoid air cells and remaining paranasal air sinuses are clear. The calvarium and central skull base are unremarkable. Procedure Note [facility], Radiant Results Inft User - 07/24/2019 2:[address] HEAD WO CONTRAST HISTORY: Dizziness, persistent/recurrent, cardiac or vascular cause suspected COMPARISON: None TECHNIQUE: Noncontrast CT imaging of the head was performed and coronal and sagittal reconstructions were obtained and reviewed. FINDINGS: The ventricles and cerebral sulci are normal in caliber and configuration. No hydrocephalus, midline shift or pathological extra-axial fluid collection is present. Prominent subarachnoid spaces are seen. The basal cisterns are unremarkable. There is no acute intracranial hemorrhage or significant mass effect. Scattered periventricular and deep white matter hypoattenuating foci represent chronic microvascular ischemic changes. The archibald-white matter differentiation is preserved. Left sphenoid sinus retention cyst noted The mastoid air cells and remaining paranasal air sinuses are clear. The calvarium and central skull base are unremarkable. IMPRESSION No acute intracranial abnormality. IJosias MD., have reviewed this study and agree with the above report. Performing Organization Address City/State/[facility] Phone Number PACS/VR/DOSE XR CHEST 1 VW (07/24/2019 1:32 PM CDT) Specimen Impressions Performed At PACS/VR/DOSE No acute cardiopulmonary abnormality. Chely Manzanares MD., have reviewed this study and agree with the above report. Narrative Performed At EXAM: XR CHEST 1 VW PACS/VR/DOSE HISTORY: shortness of breath COMPARISON: Chest x-ray 10/05/2018 FINDINGS: The lungs are clear. No focal consolidation, pleural effusion or pneumothorax is seen. The cardiac silhouette is normal in size. No acute bony abnormality. Changes of ACDF. Procedure Note [facility], Radiant Results Inft User - 07/24/2019 1:40 PM CDT EXAM: XR CHEST 1 VW HISTORY: shortness of breath COMPARISON: Chest x-ray 10/05/2018 FINDINGS: The lungs are clear. No focal consolidation, pleural effusion or pneumothorax is seen. The cardiac silhouette is normal in size. No acute bony abnormality. Changes of ACDF. IMPRESSION No acute cardiopulmonary abnormality. Sidney Manzanares MD., have reviewed this study and agree with the above report. Performing Organization Address City/State/[facility]ode Phone Number PACS/VR/DOSE DIGOXIN (07/24/2019 1:21 PM CDT) DIGOXIN 1.5 0.8 - 1.6 ng/mL [facility] Specimen Blood - VENOUS Narrative Performed At Arrythmias:1.5 - 2.0 ng/mL [facility] Toxic Range: Greater than or equal to 2.4 ng/mL Performing Organization Address City/State/Zipcode Phone Number [facility] CLIA: [id number], [address] [place] [address] CBC WITH DIFFERENTIAL (07/24/2019 1:03 PM CDT) WBC 14.20 (H) 4.30 - 11.10 [facility] 10*3/L HOSPITAL LAB[facility]ORY RBC 3.64 (L) 3.93 - 5.25 [facility] 10*6/L [facility] HGB 11.6 11.6 - 15.0 [facility] g/dL [facility] HCT 38.7 35.7 - 45.2 % [facility] MCV 106.3 (H) 80.6 - 95.5 fL [facility] MCH 31.9 25.9 - 32.8 pg [facility] MCHC 30.0 (L) 31.6 - 35.1 [facility] g/dL [facility] RDW-SD 85.7 (H) 39.0 - 49.9 fL [facility] RDW-CV 22.0 (H) 12.0 - 15.5 % [facility] PLT 197 166 - 358 [facility] 10*3/L [facility] MPV 9.9 9.5 - 12.9 fL [facility] NRBC/100 WBC 0.4 0.0 - 10.0 /100 [facility] WBCs [facility] NRBC x10^3 0.05 10*3/L [facility] GRAN MAT (NEUT) % 75.3 % [facility] IMM GRAN % 1.10 % [facility] LYMPH % 18.0 % [facility] MONO % 5.2 % [facility] EOS % 0.3 % [facility] BASO % 0.1 % [facility] GRAN MAT x10^3(ANC) 10.69 (H) 1.88 - 7.09 [facility] 10*3/uL HOSPITAL LAB[facility]ORY IMM GRAN x10^3 0.15 (H) 0.00 - 0.06 [facility] 10*3/uL [facility]ITAL [facility] LYMPH x10^3 2.56 1.32 - 3.29 [facility] 10*3/uL HOSPITAL [facility] MONO x10^3 0.74 0.33 - 0.92 [facility] 10*3/uL [facility] EOS x10^3 0.04 0.03 - 0.39 [facility] 10*3/uL [facility] BASO x10^3 <0.03 0.01 - 0.07 [facility] 10*3/uL [facility] Specimen Blood - VENOUS Performing Organization Address City/[facility] Cent[facility]ode Phone Number [facility] CLIA: [id number], [address] [place] [address] LIPASE, SERUM (07/24/2019 1:03 PM CDT) LIPASE 333 (H) 0 - 220 U/L [facility] Specimen Blood - VENOUS Performing Organization Address [facility] Centerconh Phone Number [facility] CLIA: [id number], [address] [place] [address] COMP. METABOLIC PANEL (12623) (07/24/2019 1:03 PM CDT) NA 142 135 - 145 [facility] mmol/L [facility] K 4.0 3.5 - 5.0 [facility] mmol/L [facility] CL 103 98 - 108 mmol/L [facility] CO2 TOTAL 27 23 - 31 mmol/L [facility] AGAP 12 2 - 16 [facility] BUN 28 (H) 7 - 23 mg/dL [facility] GLUCOSE 120 (H) 70 - 110 mg/dL [facility] CREATININE 1.03 0.50 - 1.04 [facility] mg/dL [facility] TOTAL BILI 0.7 0.1 - 1.1 mg/dL [facility] CALCIUM 9.2 8.6 - 10.6 [facility] mg/dL [facility] T PROTEIN 6.7 6.3 - 8.2 g/dL [facility] ALBUMIN 4.0 3.5 - 5.0 g/dL [facility] ALK PHOS 59 34 - 122 U/L [facility] ALT(SGPT) 45 9 - 51 U/L [facility] AST(SGOT) 33 13 - 40 U/L [facility] eGFR Calculation 52.4 mL/min/1.73m2 [facility] (Non[facility] LABORATORY [place]) eGFR Calculation 63.5 mL/min/1.73m2 [facility] () [facility] Specimen Blood - VENOUS Narrative Performed At Association of Glomerular Filtration Rate (GFR) [facility] and Staging of Kidney Disease* + + +- + | GFR (mL/min/1.73 m2)| With Kidney Damage|Without Kidney Damage + + +- + |>90| Stage one| Normal + + +- + |60-89|S tage two| Decreased GFR + + +- + |30-59|S tage three| Stage three + + +- + |15-29|S tage four | Stage four + + +- + |<15 (or dialysis)|Stage five | Stage five + + +- + *Each stage assumes the associated GFR level has been in effect for at least three months.Stages 1 to 5, with or without kidney disease, indicate chronic kidney disease. Notes: Determination of stages one and two (with eGFR >59mL/min/1.73 m2) requires estimation of kidney damage for at least three months as defined by structural or functional abnormalities of the kidney, manifested by either: Pathological abnormalities or Markers of kidney damage (including abnormalities in the composition of the blood or urine or abnormalities in imaging tests). Performing Organization Address [facility] Cent[facility]ode Phone Number [facility] CLIA: [id number], [address] [place] [address] PROTHROMBIN TIME / INR (07/24/2019 1:03 PM CDT) [facility] PROTIME PATIENT 13.6 12.0 - 14.7 [facility] LABORATORY INR 1.1Comment: Normal [facility] INR <1.1; Warfarin [facility] Therapeutic range LABORATORY 2.0 to 3.0 or 2.5 to 3.5, depending upon the indications. Specimen Blood - VENOUS Performing Organization Address City/[facility] Centercode Phone Number [facility] [id number], [address] [place] [address] aPTT (07/24/2019 1:03 PM CDT) [facility] APTT Patient 24 23 - 38 Seconds [facility] Specimen Blood - VENOUS Narrative Performed At The [facility] patient population mean normal value [facility] for aPTT is 30 seconds. Performing Organization Address [facility] Centercode Phone Number [facility] CLIA: [id number], [address] [place] [address] TROPONIN I (07/24/2019 1:03 PM CDT) TROPONIN I 0.016 <=0.034 ng/mL [facility] Specimen Blood - VENOUS Narrative Performed At Equal or Less than 0.034 ng/ml---Normal [facility] Note: Cardiac troponin begins to rise 3-4 hours after the onset of ischemia. Repeat in 4-6 hours if the sample was drawn within 3-4 hours of the onset of the symptom and found normal. Between 0.035 and 0.120 ng/mL--- Borderline. Questionable myocardial injury or necrosis Note: Serial measurement may be necessary to confirm or exclude the diagnosis of myocardial injury or necrosis; Clinical correlation (symptoms, EKGs, imaging studies, and others) required; Repeat in 4-6 hours if clinically indicated. Equal or Higher than 0.121 ng/mL---Abnormal. Myocardial Injury or Necrosis Likely Biotin has been reported to cause a negative bias, interpret results relative to patient's use of biotin. Performing Organization Address [facility] [facility] Cent[facility] Phone Number [facility] CLIA: [id number], [address] [place] [address] documented in this encounter Visit Diagnoses Diagnosis SOB (shortness of breath) - Primary Shortness of breath Dizziness Dizziness and giddiness Urinary tract infection without hematuria, site unspecified documented in this encounter Insurance Payer Benefit Plan Subscriber ID Effective Phone Address Type / Group Dates AETNA - AETNA [id number] 2013-Prese [address] Medicare Adv [place]NA[place]V [place] [id number] [place] [address] documented as of this encounter"
--- OUTSIDE RECORDS SUMMARY | 2019-11-01 12:30 | XMS REPORT | Summary of Care ---
:1945 Author Organization [facility] [place] [address] Care Team Providers Name Role Phone Unavailable Primary Care Provider Unavailable Reason for Referral Radiology Services (Routine) Status Reason Specialty Diagnoses / Referred By Referred To Procedures Contact Contact E-Auth Not Cardiology Diagnoses Congestive heart failure, unspecified HF chronicity, unspecified heart failure type (HCCode) Chest pain, unspecified type w/ echo, given instructions Cash Sahni MD Needed Procedures MYOCARD PERFUSION - LEXISCAN [address] [facility] [place] [address] Radiology Services (Routine) Status Reason Specialty Diagnoses / Procedures Referred By Contact Referred To Contact Pending Cardiology Diagnoses Atrial fibrillation, unspecified type (HCCode) Congestive heart failure, unspecified HF chronicity, unspecified heart failure type (HCCode) Chest pain, unspecified type w/ nuc Cash Sahni MD Procedures ECHO, COMPLETE [address] [facility] [place] [address] Reason for Visit Reason Comments Cardiology Initial Visit refer by Fam medicine Atrial Fibrillation Chest Pain Palpitations Shortness of Breath Dizziness Leg Swelling Fatigue Consult, Test & Treat (Routine) Status Reason Specialty Diagnoses / Referred By Referred To Procedures Contact Contact Authorization Not Consult, Cardiology Diagnoses Atrial fibrillation, unspecified type (HCCode) Congestive heart failure, unspecified HF chronicity, unspecified heart failure type (HCCode) Dyspnea, unspecified type [facility] Cardiology Needed Test, and Procedures SD OFFICE OUTPATIENT NEW 30 MINUTES MD Mirna [address] , [address] [place], [place] [address] [address] [place], [place] Phone: [phone] Phone: Encounter Details Date Type Department Care Team Description 08/23/2019 [facility] Initial Medicine Cardiology [address] [facility] Visit (refer by [facility] [address] , [address] medicine); [place] [address] [place] Fibrillation; Chest [phone] Pain; Palpitations; [phone] Shortness of Breath; [phone] Dizziness; Leg (Fax) Swelling; Fatigue Allergies Active Allergy Reactions Severity Noted Date Comments Ambien 12/24/2011 Etodolac 12/19/2009 documented as of this encounter (statuses as of 08/23/2019) Medications Medication Sig Dispensed Refills Start Date End Date Status Flavoxate HCl Take by 0 Active (URISPAS PO) mouth. Meth-Hyo-M Bl-Na 1 tablet 90 Each 3 12/08/2011 Active Phos-Ph Ruddy (URELLE) Every 8 hours 81 MG TABS for 30 days. Take 1 tab every 8 hours as needed Meth-Hyo-M Bl-Na 81 mg 3 times 270 Each 0 06/07/2012 Active Phos-Ph Ruddy (URELLE) daily for 90 81 MG TABS days. Take 1 tab every 8 hours predniSONE 0 07/07/2019 Active (DELTASONE) 5 MG tablet sumatriptan Take 100 mg 0 Active (IMITREX) 100 MG by mouth as tablet needed. furosemide (LASIX) TAKE 1 TABLET 0 07/11/2019 Active 40 MG tablet BY MOUTH EVERY DAY levothyroxine Take 75 mcg 0 Active (SYNTHROID) 75 MCG by mouth tablet daily. DILT-XR 180 MG XR TAKE 1 3 05/30/2019 Active capsule CAPSULE BY MOUTH EVERY DAY ELIQUIS 5 MG TABS TAKE 1 TABLET 2 06/18/2019 Active BY MOUTH TWICE A DAY gabapentin Take 300 mg 0 01/28/2016 Active (NEURONTIN) 300 MG by mouth 3 capsule times daily. venlafaxine Take 150 mg 0 Active (EFFEXOR-XR) 150 MG by mouth. XR capsule aspirin EC 81 MG Take 81 mg by 0 Active tablet mouth daily. metoprolol Take 100 mg 0 Active (TOPROL-XL) 100 MG by mouth two XL tablet times daily. HYDROcodone-Acetamin Take 1 Tab by 0 Active ophen 7.5-300 MG mouth. TABS digoxin (LANOXIN) Take 125 mcg 0 08/06/2019 08/23/2019 Discontinued 125 MCG tablet by mouth daily. metoprolol Take 100 mg 0 08/23/2019 Discontinued (LOPRESSOR) 100 MG by mouth. tablet documented as of this encounter (statuses as of 08/23/2019) Active Problems Problem Noted Date Chest pain 08/23/2019 Dyspnea 08/11/2019 [facility] 08/11/2019 Congestive heart failure [facility] 08/11/2019 Overview: Request ECHO results Need for influenza vaccination 08/11/2019 [place]'s disease [facility] 08/11/2019 Tremor 08/11/2019 Overview: Has appointment Dr. [...] as of this encounter (statuses as of 08/23/2019) Resolved Problems Problem Noted Date Resolved Date Other and combined forms of senile cataract 04/14/2012 11/22/2012 Pseudophakia 01/31/2012 05/25/2015 documented as of this encounter (statuses as of 08/23/2019) Immunizations Name Administration Dates Next Due Influenza [...] Sign Reading Time Taken Comments Blood Pressure 125/67 08/23/2019 9:09 AM CDT Pulse 51 08/23/2019 9:09 AM CDT Temperature - - Respiratory Rate 16 08/23/2019 9:09 AM CDT Oxygen Saturation 96% 08/23/2019 9:09 AM CDT Inhaled Oxygen Concentration - - Weight 60.3 kg (133 lb) 08/23/2019 9:09 AM CDT Height 162.6 cm (5' 4") 08/23/2019 9:09 AM CDT Body Mass Index 22.83 08/23/2019 9:09 AM CDT documented in this encounter Patient Instructions Patient InstructionsCash Sahni MD - 08/23/2019 9:00 AM CDTStop digoxin We will schedule an ultrasound and nuclear stress test If your heart rate becomes fast call our office we may need to restart digoxin or can consider referral to electrophysiology for ablation. documented in this encounter Progress Notes Cash Sahni MD - 08/23/2019 9:00 AM CDT Cash Sahni MD PhD Department of Medicine Section of Cardiology [address] [place] [address] Date: August 23, 2019 Patient Name: Pilar Bass Patient Date of : 1945 Chief Complaint: Chief Complaint Patient presents with Cardiology Initial Visit refer by [facility] medicine Atrial Fibrillation Chest Pain Palpitations Shortness of Breath Dizziness Leg Swelling Fatigue HISTORY History of Present Illness: Pilar Bass is a 74 y.o. female with PMH of persistent atrial fibrillation , CHF?, referred for management of a fib and dyspnea. She was diagnosed with atrial fibrillation [place] is not sure if she had an echo and does not remember being told she had reduced LV function. She was started on toprol xl 100, Diltiazem XR 180 and furosemide 40 mg, digoxin 0.125mg and apixaban 5 mg BID, following with Director Emergency Department Dr. Ramirez. Over the past year, has been noticing more dyspnea on exertion. A year ago could walk a couple of blocks and could walk around the grocery store, though not able to walk up a flight of stairs. Now short of breath just walking to her mailbox at home (less than 100 feet). Now needs to rest a few times if walking in the grocery store. Has had bloating, nausea. 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 Also has tresting tremor which has been ongoing for years. Has an appointment with Gastroenterology and and Clinical Psychologist Licensed in Nov. As well as with a local Neurologist. Has dizziness, denies syncope. Sometimes gets chest pain which seems more exertional. Says she had astress test a year ago, is unsure the result but thinks it was normal. Current Medications: Current Outpatient Medications Medication Sig Dispense Refill aspirin EC 81 MG tablet Take 81 mg by mouth daily. digoxin (LANOXIN) 125 MCG tablet Take 125 mcg by mouth daily. DILT-XR 180 MG XR capsule TAKE 1 CAPSULE BY MOUTH EVERY DAY 3 ELIQUIS 5 MG TABS TAKE 1 TABLET BY MOUTH TWICE A DAY 2 Flavoxate HCl (URISPAS PO) Take by mouth. furosemide (LASIX) 40 MG tablet TAKE 1 TABLET BY MOUTH EVERY DAY 0 gabapentin (NEURONTIN) 300 MG capsule Take 300 mg by mouth 3 times daily. HYDROcodone-Acetaminophen 7.5-300 MG TABS Take 1 Tab by mouth. levothyroxine (SYNTHROID) 75 MCG tablet Take 75 mcg by mouth daily. Meth-Hyo-M Bl-Na Phos-Ph Ruddy (URELLE) 81 MG TABS 81 mg 3 times daily for 90 days. Take 1 tab every 8 hours 270 Each 0 Meth-Hyo-M Bl-Na Phos-Ph Ruddy (URELLE) 81 MG TABS 1 tablet Every 8 hours for 30 days. Take 1 tab every 8 hours as needed 90 Each 3 metoprolol (TOPROL-XL) 100 MG XL tablet Take 100 mg by mouth two times daily. predniSONE (DELTASONE) 5 MG tablet sumatriptan (IMITREX) 100 MG tablet Take 100 mg by mouth as needed. venlafaxine (EFFEXOR-XR) 150 MG XR capsule Take 150 mg by mouth. No current facility-administered medications for this visit. Allergies: Allergies Allergen Reactions Justino Medina [Etodolac] Past Medical History: Past Medical History: Diagnosis Date Cataract Depression Hypertension Migraines Night sweat Pinched nerve Pinched nerve in Neck Past Surgical History: Past Surgical History: Procedure Laterality Date HX BACK SURGERY 10/2013 HX CATARACT REMOVAL HX GALLBLADDER SURGERY 2001 HX HAND SURGERY HX HYSTERECTOMY 1981 HX KNEE SURGERY 2009 HX PRK 07-23-2012 left eye HX PRK 2015 right eye SD DISCISSION,2ND CATARACT,LASER Right 04/06/2014 SD EYE SURG ANT SGMT PROC UNLISTED 01-30-2012 CV PRK, right eye SD REMV CATARACT EXTRACAP,INSERT LENS 05/27/2012 Social History: Social History Tobacco Use Smoking status: Never Smoker Smokeless tobacco: Never Used Substance Use Topics Alcohol use: No The patient has no history of alcohol abuse (abuse=men: >5 drinks/day or > 15 drinks/wk, women:>4 drinks/day or >8 drinks/wk). Family History: Family History Problem Relation Name Age of Onset Cataract Mother Glaucoma Neg Hx Blindness Neg Hx Macular Degen Neg Hx Retinal Detachment Neg Hx Amblyopia Neg Hx Strabismus Neg Hx Fuchs' Dystrophy Neg Hx Corneal Dystrophy Neg Hx Retinitis Pigmentosa Neg Hx Occular Albinism Neg Hx Neurofibromatosis Neg Hx Marfan Syndrome Neg Hx Bardet-Biedl Syndrome Neg Hx Thyroid Disease Neg Hx Diabetes Neg Hx Hypertension Neg Hx Stroke Neg Hx Cancer Neg Hx Review of Systems: A full 12-system review was performed and documented below. Denies any edema, irregular heart beat, loss of consciousness, murmur, orthopnea , palpitations, paroxysmal nocturnal dyspnea, rapid heart rate. All other systems reviewed and negative unless stated in HPI. EXAMINATION BP 125/67 | Pulse 51 | Resp 16 | Ht 5' 4" (1.626 m) | Wt 133 lb (60.3 kg) | SpO2 96% | BMI 22.83 kg/m General appearance alert, cooperative, no distress, appears stated age HEENT Normocephalic, without obvious abnormality, atraumatic Neck Supple, normal carotid upstroke, no carotid bruit and no JVD, scar on anterior neck (prior cervical surgery) Lungs clear to auscultation bilaterally Chest wall no tenderness Heart Bradycardic, irregular rhythm S1, S2 normal, no murmur, click, rub or gallop. PMI non displaced Abdomen soft, non-tender. Bowel sounds normal Extremities extremities normal, no cyanosis or edema Pulses 2+ and symmetric MSK No joint pain or effusion Skin Skin color, texture, turgor normal. No rashes or lesions Neurologic Nonfocal DATA Laboratory Testing: Results for orders placed or performed in visit on 06/07/12 POCT URINALYSIS DIPSTICK Result Value Ref Range COLOR UA Green/Blue YELLOW/STRAW CLARITY UA Clear CLEAR GLUCOSE UA Negative NEGATIVE BILIRUBIN UA Negative NEGATIVE KETONES UA Negative NEGATIVE SPECIFIC GRAVITY UA 1.000 (A) 1.005 - 1.035 BLOOD UA Negative NEGATIVE PH UA 5.0 5 - 9 PROTEIN UA Negative NEGATIVE UROBILINOGEN UA 0.02 E.U/DL NORMAL MG/DL LEUKOCYTE ESTERASE UA Negative NEGATIVE NITRITE UA Negative NEGATIVE REDUCING SUBSTANCES URINE NEGATIVE Cardiology Studies: Electrocardiogram: Atrial fibrillation with slow ventricular response Echocardiogram: Cardiac Stress Testing: Cardiac Catheterization: Radiology Studies: IMPRESSION Pilar Bass is a 74 y.o. female with a history of: Patient Active Problem List Diagnosis S/P ASA/PRK (advanced surface ablation photorefractive keratectomy) After-cataract, obscuring vision Pseudophakia, both eyes Urinary urgency Subconjunctival hematoma Dyspnea Atrial fibrillation (HCCode) Congestive heart failure (HCCode) Need for influenza vaccination Eugene's disease (HCCode) Tremor Polypharmacy Other chronic pain Bradycardia Non-intractable vomiting with nausea Chest pain SUMMARY AND PLAN Diagnoses and all orders for this visit: Atrial fibrillation, unspecified type (HCCode) - ECHO, COMPLETE; Future Congestive heart failure, unspecified HF chronicity, unspecified heart failure type (HCCode) - ECHO, COMPLETE; Future - MYOCARD PERFUSION - LEXISCAN; Future Chest pain, unspecified type - ECHO, COMPLETE; Future - MYOCARD PERFUSION - LEXISCAN; Future Dyspnea on exertion Other orders - metoprolol (TOPROL-XL) 100 MG XL tablet; Take 100 mg by mouth two times daily. - HYDROcodone-Acetaminophen 7.5-300 MG TABS; Take 1 Tab by mouth. Persistent atrial fibrillation with slow ventricular response. Currently taking metoprolol, diltiazem and digoxin, apixaban for stroke ppx. - Will stop digoxin, continue metoprolol and diltiazem for now. - Echo given worsening dyspnea on exertion - continue Eliquis for stroke prevention Chest pain - Has some typical and atypical features - Hybrid nuclear stress test. Will assess HR response on treadmill after 4 minutes. She would be unable to achieve adequate stress with treadmill alone. Dyspnea on exertion - could be related to atrial fibrillation, possibly slow HR if not able to compensate - Hybrid nuclear stress as above - Echo If symptoms persist and HR is difficult to control, will plan for EP referral to consider a fib ablation RTC in 3 months Thank you for referring this patient for consultation and allowing me to participate in her care. Please do not hesitate to call with any questions. Cash Sahni MD PhD [facility] Financial Investment Adviserhead piece assembler Section of Cardiology [id number] signed by Cash Sahni MD at 08/23/2019 11:45 AM CDTdocumented in this encounter Plan of Treatment Date Type Specialty Care Team Description 08/26/2019 Ancillary Procedure Cardiology 08/26/2019 Ancillary Procedure Cardiology 09/01/2019 Office Visit Family Medicine Mirna Dalton MD [address] [facility] [address] [place] [address] 12/08/2019 Office Visit Endocrinology Renzo Cantu MD [address] [place] [address] Name Type Priority Associated Diagnoses Order Schedule ECHO, COMPLETE Cardiac Services Routine Atrial Fibrillation, Expected: Unspecified Type 08/23/2019, (Hccode) Expires: Congestive Heart 02/22/2020 Failure, Unspecified Hf Chronicity, Unspecified Heart Failure Type (Hccode) Chest Pain, Unspecified Type MYOCARD PERFUSION - Imaging Routine Congestive Heart Expected: LEXISCAN Failure, Unspecified 08/23/2019, Hf Chronicity, Expires: Unspecified Heart 02/21/2021 Failure Type (Hccode) Chest Pain, Unspecified Type Health Maintenance Due Date Last Done Comments [...] of this encounter Implants Implanted Type Area Doll Maker Device Shelf Model / Serial Identifier Expiration / Lot Date Iol - [id number] - [id number] LENS Left: Eye JOHN 06/15/2016 21.0 D / Implanted: Qty: 1 on 05/27/2012 at [facility] [id number] / documented as of this encounter Results Not on filedocumented in this encounter Visit Diagnoses Diagnosis Atrial fibrillation, unspecified type (HCCode) - Primary Congestive heart failure, unspecified HF chronicity, unspecified heart failure type (HCCode) Chest pain, unspecified type Dyspnea on exertion Other dyspnea and respiratory abnormality documented in this encounter Insurance Payer Benefit Plan / Subscriber ID Effective Dates Phone Address Type Group A[employer]NA MEDICARE PLAN PPO xxxxxxxx 2013-Present [address] [place] [address] (Home) [address] [place] [phone] documented as of this encounter
--- OUTSIDE RECORDS SUMMARY | 2019-11-01 12:30 | XMS REPORT | Summary of Care ---
:1945 Author Organization [facility] [place] [address] Care Team Providers Name Role Phone Unavailable Primary Care Provider Unavailable Reason for Visit Reason Comments Establish Care follow up on dyspnea Encounter Details Date Type Department Care Team Description 09/01/2019 Office Visit [facility] Staci Dalton Care ( follow Medicine Family MD Mirna up on dyspnea) Medicine [address], [facility] [address] [place] [address] [place], [place] [id number] Allergies Active Allergy Reactions Severity Noted Date Comments Ambien 12/24/2011 Etodolac 12/19/2009 documented as of this encounter (statuses as of 09/01/2019) Medications Medication Sig Dispensed Refills Start Date End Date Status Flavoxate HCl Take by mouth. 0 Active (URISPAS PO) sumatriptan Take 100 mg by 0 Active (IMITREX) 100 MG mouth as needed. tablet furosemide (LASIX) TAKE 1 TABLET BY 0 07/11/2019 Active 40 MG tablet MOUTH EVERY DAY levothyroxine Take 75 mcg by 0 Active (SYNTHROID) 75 MCG mouth daily. tablet DILT-XR 180 MG XR TAKE 1 CAPSULE 3 05/30/2019 Active capsule BY MOUTH EVERY DAY ELIQUIS 5 MG TABS TAKE 1 TABLET BY 2 06/18/2019 Active MOUTH TWICE A DAY gabapentin Take 300 mg by 0 01/28/2016 Active (NEURONTIN) 300 MG mouth nightly. capsuleIndications: Indications: Neuropathic Pain, Neuropathic Restless Leg Pain, Restless Syndrome Leg Syndrome aspirin EC 81 MG Take 81 mg by 0 Active tablet mouth daily. metoprolol Take 100 mg by 0 Active (TOPROL-XL) 100 MG mouth two times XL tablet daily. HYDROcodone-Acetami Take 1 Tab by 0 Active nophen 7.5-300 MG mouth. TABS venlafaxine Take 1 Cap by 30 Cap 5 09/01/2019 Active (EFFEXOR-XR) 75 MG mouth daily. XR capsuleIndications: History of depression, History of migraine predniSONE Take 1 Tab by 30 Tab 0 09/01/2019 Active (DELTASONE) 2.5 MG mouth daily. tablet Meth-Hyo-M Bl-Na 1 tablet Every 8 90 Each 3 12/08/2011 Discontinued Phos-Ph Ruddy hours for 30 9 (URELLE) 81 MG TABS days. Take 1 tab every 8 hours as needed Meth-Hyo-M Bl-Na 81 mg 3 times 270 Each 0 06/07/2012 Discontinued Phos-Ph Ruddy daily for 90 9 (URELLE) 81 MG TABS days. Take 1 tab every 8 hours predniSONE 0 07/07/2019 Discontinued (DELTASONE) 5 MG 9 tablet venlafaxine Take 150 mg by 0 Discontinued (EFFEXOR-XR) 150 MG mouth. 9 XR capsule digoxin (LANOXIN) Take 125 mcg by 0 Discontinued 125 MCG tablet mouth daily. 9 documented as of this encounter (statuses as of 09/01/2019) Active Problems Problem Noted Date Chest pain 08/23/2019 Dyspnea 08/11/2019 [facility] 08/11/2019 [facility] 08/11/2019 Overview: Request ECHO results Need for influenza vaccination 08/11/2019 [place]'s disease [facility] 08/11/2019 Tremor 08/11/2019 Overview: Has appointment Dr. Evans Neurologist Polypharmacy 08/11/2019 Overview: Can decrease gabapentin to BID . Other chronic pain 08/11/2019 Overview: consider switch from effexor to cymbalta Non-intractable vomiting with nausea 08/11/2019 Overview: suspect digitalis toxicity Acute diastolic CHF (congestive heart failure) [facility] 10/13/2018 Subconjunctival hematoma 02/20/2016 Urinary urgency 03/01/2014 After-cataract, obscuring vision 11/30/2013 Pseudophakia, both eyes 11/30/2013 S/P ASA/PRK (advanced surface ablation photorefractive keratectomy) 01/31/2012 documented as of this encounter (statuses as of 09/01/2019) Resolved Problems Problem Noted Date Resolved Date Bradycardia 08/11/2019 09/01/2019 Overview: suspect digitalis toxicity Other and combined forms of senile cataract 04/14/2012 11/22/2012 Pseudophakia 01/31/2012 05/25/2015 documented as of this encounter (statuses as of 09/01/2019) Immunizations Name Administration Dates Next Due Influenza [...] Sign Reading Time Taken Comments Blood Pressure 164/85 09/01/2019 10:34 AM CDT Pulse 69 09/01/2019 10:34 AM CDT Temperature 36.7 C (98.1 F) 09/01/2019 10:28 AM CDT Respiratory Rate 16 09/01/2019 10:28 AM CDT Oxygen Saturation - - Inhaled Oxygen Concentration - - Weight 62.7 kg (138 lb 3.2 oz) 09/01/2019 10:28 AM CDT Height 162.6 cm (5' 4") 09/01/2019 10:28 AM CDT Body Mass Index 23.72 09/01/2019 10:28 AM CDT documented in this encounter Progress Notes Mirna Dalton MD - 09/01/2019 1:30 PM CDT Chief Complaint Patient presents with Establish Care follow up on dyspnea PCP: No primary care provider on file. History of Present Illness: Pilar Bass is a 74 y.o. female with chronic atrial fibrillation, spinal stenosis, history of migraine, history of depression and past history of narcotic dependence (fentanyl) , Polypharmacy whois here with her daughter Milady Mantilla She is here for follow up of our last visit. Since that visit she saw rubber liner . Digoxin was stopped as many of her symptoms were suggestive of digoxin toxicity. She was supposed to do stress test and echo last Thursday but experienced vomiting . She last vomited on Thursday. She is still feeling out of breath with exertion and will reschedule the cardiac tests. She is very deconditioned due to limited activity this year. She is on prednisone which was started by her pcp for her symptoms of weakness, vomiting, etc. 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 ( No cortisol, ACTH stim test Documented or ordered) She has decreased prednisone to 5 mg and would like to try decreasing it further. I agree and we areawaiting endocrinology consultation Spinal stenosis s/p Back surgery : Taking Gabapentin 300mg nightly for neuropathic pain and restless leg. Taking hydrocodone 7.5mg 1 tablet daily. Trying to wean off. She became dependent on narcotics in the past and is trying to avoid this History of severe migraine MARCUS: On Venlafaxine 150 mg for migraines since 1982. Had severe migraines in the past. Used to see Dr. Jaramillo MARCUS specialist In early was on fentanyl patch for several years. . Went into inpatient rehab to detox off Fentanyl. No migraines for over 1 year Did have depression after of spouse . Effexor dose was increased at that time. She would liketo decrease the dose. No visits with results within 3 Month(s) [...] UA 06/07/2012 Negative NEGATIVE In process ROS: ROS Past Medical History/Past Social History/Family History: I have personally reviewed this patient's past medical history, social history, family history and have updated the computerized patient record accordingly. Past Medical History: Diagnosis Date Cataract Depression Hypertension Migraines Night sweat Pinched nerve Pinched nerve in Neck Past Surgical History: Procedure Laterality Date HX BACK SURGERY 10/2013 lumbar spinal stenosis HX CATARACT REMOVAL HX GALLBLADDER SURGERY 2001 HX HAND SURGERY HX HYSTERECTOMY 1980 HX KNEE SURGERY 2008 HX PRK 07-23-2012 left eye HX PRK 2015 right eye AR DISCISSION,2ND CATARACT,LASER Right 04/06/2014 AR EYE SURG ANT SGMT PROC UNLISTED 01-30-2012 CV PRK, right eye AR REMV CATARACT EXTRACAP,INSERT LENS 05/27/2012 Social History Tobacco Use Smoking status: Never Smoker Smokeless tobacco: Never Used Substance Use Topics Alcohol use: No Drug use: No Current Outpatient Medications on File Prior to Visit Medication Sig Dispense Refill aspirin EC 81 MG tablet Take 81 mg by mouth daily. DILT-XR 180 MG XR capsule TAKE 1 CAPSULE BY MOUTH EVERY DAY 3 ELIQUIS 5 MG TABS TAKE 1 TABLET BY MOUTH TWICE A DAY 2 Flavoxate HCl (URISPAS PO) Take by mouth. furosemide (LASIX) 40 MG tablet TAKE 1 TABLET BY MOUTH EVERY DAY 0 gabapentin (NEURONTIN) 300 MG capsule Take 300 mg by mouth nightly. Indications: Neuropathic Pain, Restless Leg Syndrome HYDROcodone-Acetaminophen 7.5-300 MG TABS Take 1 Tab by mouth. levothyroxine (SYNTHROID) 75 MCG tablet Take 75 mcg by mouth daily. metoprolol (TOPROL-XL) 100 MG XL tablet Take 100 mg by mouth two times daily. sumatriptan (IMITREX) 100 MG tablet Take 100 mg by mouth as needed. No current facility-administered medications on file prior to visit. Medications/Allergies: reviewed and updated as needed at today's visit. Physical Examination: BP 164/85 | Pulse 69 | Temp 98.1 F (36.7 C) (Oral) | Resp 16 | Ht 5' 4" (1.626 m) | Wt 138 lb 3.2 oz (62.7 kg) | BMI 23.72 kg/m Nursing note and vital signs reviewed. Physical Exam Constitutional: She is oriented to person, place, and time and well-developed, well-nourished, and in no distress. No distress. HENT: Head: Normocephalic and atraumatic. Eyes: Conjunctivae and EOM are normal. Neck: Neck supple. No thyromegaly present. Cardiovascular: Normal rate, normal heart sounds and intact distal pulses. Exam reveals no gallop and no friction rub. No murmur heard. Irregularly irregular rhythm Pulmonary/Chest: Effort normal and [...] Impression/Plan: Encounter Diagnosis and Orders ICD-10-CM 1. Atrial fibrillation, unspecified type (HCCode) I48.91 continue current regimen. (digoxin stopped). Bradycardia improved Follow up with rubber liner 2. History of depression Z86.59 venlafaxine (EFFEXOR-XR) 75 MG XR capsule 3. History of migraine Z86.69 venlafaxine (EFFEXOR-XR) 75 MG XR capsule 4. Polypharmacy Z79.899 5. Dyspnea, unspecified type R06.00 awaiting Echo and stress test results. May start low impact exercise with silver sneakers program once cleared 6. Spinal stenosis of lumbar region, unspecified whether neurogenic claudication present M48.061 will continue gabapentin 300mg at bedtime. Will discuss going down on Hydrocodoen dose with her painting instructor 7. Congestive heart failure, unspecified HF chronicity, unspecified heart failure type (HCCode) I50.9 awaiting cardiac testing Please see AVS for patient instructions. All questions answered. Patient agrees with plan of care. Mirna Dalton MD Hypnotherapist [facility]ically signed by Mirna Dalton MD at 2:00 PM CDTdocumented in this encounter Plan of Treatment Date Type Specialty Care Team Description 12/08/2019 Office Visit Endocrinology Renzo Cantu MD [facility] [address] [place] [address] Health Maintenance Due Date Last Done Comments [...] of this encounter Implants Implanted Type [facility] Receptionist Device Shelf Model / Serial Identifier Expiration / Lot Date Iol - [id number] - [id number] LENS Left: Eye JOHN 06/15/2016 21.0 D / Implanted: Qty: 1 on 05/27/2012 at [facility] [id number] / documented as of this encounter Results Not on filedocumented in this encounter Visit Diagnoses Diagnosis Atrial fibrillation, unspecified type (HCCode) - Primary History of depression Personal history of other mental disorder History of migraine Personal history of other disorders of nervous system and sense organs Polypharmacy Issue of repeat prescriptions Dyspnea, unspecified type Spinal stenosis of lumbar region, unspecified whether neurogenic claudication present Congestive heart failure, unspecified HF chronicity, unspecified heart failure type (HCCode) documented in this encounter Insurance Payer Benefit Plan / Subscriber ID Effective Dates Phone Address Type Group [employer] MED[employer]ARE PLAN PPO xxxxxxxx 2013-Present [address] Medicare - [employer] [place] [phone] ([address]) [address] [place] [id number] documented as of this encounter
[2019-11-01 12:58] LABS: Absolute Lymphocytes (CBC) 1.7 K/uL (0.7-4.9); Basophils % 0.7 % (0-1.3); Hematocrit 32.3 % (36.0-45.0); Lymphocytes % 15.7 % (15.3-44.8); MPV 8.3 fL (7.6-11.3); RBC Red Blood Cell Count 3.82 M/uL (3.86-4.86)
[2019-11-01] MEDS ORDERED: MORPHINE 2 MG/ML SYR ONE ×2 (13:07→14:09)
[2019-11-01] MEDS ORDERED: ACETAMINOPHEN 500 MG TAB ONE (13:07)
[2019-11-01] MEDS ORDERED: ONDANSETRON 4 MG/2 ML VIAL ONE (13:07)
[2019-11-01 13:08] LABS: Albumin 3.3 g/dL (3.4-5.0); Bilirubin Direct 0.3 mg/dL (0-0.2); Bilirubin Total 0.8 mg/dL (0.2-1.0); Potassium 3.3 mmol/L (3.5-5.1); Protein, Total 6.4 g/dL (6.4-8.2)
[2019-11-01] MEDS ORDERED: FAMOTIDINE 20 MG/2 ML VIAL IV ONE (13:08)
[2019-11-01] MEDS ORDERED: NA CHLORIDE 0.9% 1,000 ML ONE (13:08)
[2019-11-01 13:42] LABS: Anisocytosis 1+; Blood Morphology Comment NOTED (NOT SEEN); Ovalocytes 1+; Platelet Estimate ADEQ; Urine White Blood Cell Casts OK
[2019-11-01 13:45] LABS: Protime INR 3.38
[2019-11-01 13:50] LABS: Magnesium 2.2 mg/dL (1.8-2.4); Troponin (Emerg Dept Use Only) 0.02 ng/mL (0.0-0.045)
--- NOTE | 2019-11-01 14:01 | RAD REPORT ---
EXAM DESCRIPTION: CT - Abdomen Pelvis W Contrast - 11/01/2019 1:45 pm CLINICAL HISTORY: Abdominal pain/vomiting COMPARISON: none. TECHNIQUE: Computed axial tomography of the abdomen pelvis was obtained. 100 cc Isovue-300 was admin istered intravenously. Oral contrast was not requested which limits evaluation of bowel. All CT scans are performed using dose optimization technique as appropriate and may include automated exposure control or mA/KV adjustment according to patient size. FINDINGS: The liver has a heterogeneous density. Cholecystectomy Spleen, pancreas, adrenal and right kidney appear unremarkable. Mild low-density areas within the per iphery of the left There is no evidence of diverticulitis. Appendectomy A high-grade stenosis proximal celiac artery. Mild posterior subluxation L2 on L3 Air within nondilated small bowel. Postsurgical changes lumbar spine IMPRESSION: Heterogeneous hepatic density may be related to passive congestion High-grade stenosis celiac artery Air within nondilated small bowel may indicate an enteritis Mild low-density areas within the periphery of the left kidney may indicate pyelonephritis or inflamm ation.
--- NOTE | 2019-11-01 14:03 | RAD REPORT ---
EXAM DESCRIPTION: Lizz Single View11/01/2019 1:17 pm CLINICAL HISTORY: Abdominal pain COMPARISON: 2010 FINDINGS: Mild bilateral interstitial lung opacities. The heart is mildly enlarged IMPRESSION: Mild CHF
[2019-11-01 15:56] LABS: Urine Bacteria 20-50 /HPF (<20); Urine Culture Reflex Order NOT NEEDED; Urine Mucus 2+ /HPF (NONE SEEN); Urine RBC <5 /HPF (NONE SEEN)
[2019-11-01 15:57] LABS: Urine Blood NEGATIVE (NEG); Urine Glucose NEGATIVE (NEG); Urine Protein 2+ (NEG)
[2019-11-01] MEDS ORDERED: LORazepam 2 MG/ML VIAL ONE (15:58)
--- NOTE | 2019-11-01 19:40 | ER ---
Nurse's Notes [facility] Name: Pilar Bass Age: 74 yrs Sex: Female : 1945 Arrival Date: 11/01/2019 Time: 12:29 Bed 25 Private MD: Diagnosis: abdominal pain;CHF Presentation: 11/01 12:29 Presenting complaint: EMS states: this morning she was seen by her neurologist for mg2 memory test. everything was good but her abdomen has been hurting -diffused, n/v but it all started 6 months ago and worsening today. Transition of care: patient was not received from another setting of care. Onset of symptoms was November 01, 2019. Risk Assessment: Do you want to hurt yourself or someone else? Patient reports no desire to harm self or others. Initial Sepsis Screen: Does the patient meet any 2 criteria? No. Patient's initial sepsis screen is negative. Does the patient have a suspected source of infection? No. Patient's initial sepsis screen is negative. 12:29 Method Of Arrival: EMS: [facility] mg2 12:29 Acuity: SUHAIL 3 mg2 12:34 Care prior to arrival: None. Care prior to arrival: Medication(s) given: zofran 4 mg. mg2 Triage Assessment: 12:33 General: Appears in no apparent distress. comfortable, Behavior is calm, cooperative. mg2 Pain: Complains of pain in abdomen. Historical: - Allergies: 12:36 Lodine; mg2 12:36 ambien; mg2 - Home Meds: 13:13 diltiazem HCl 240 mg Oral CDER 1 cap once daily [Active]; metoprolol tartrate 100 mg mg2 Oral tab 1 tab 2 times per day [Active]; pantoprazole 40 mg oral TbEC [Active]; levothyroxine 175 mcg tab 1 tab once daily [Active]; losartan 50 mg oral tab 1 tab once daily [Active]; ropinirole 0.25 mg oral tab [Active]; furosemide Oral [Active]; Zofran Oral [Active]; Sumatriptan Sub-Q [Active]; Eliquis 5 mg oral tab 1 tab 2 times per day [Active]; - PMHx: 12:36 CHF; mg2 - PSHx: 12:36 Tummy tuck; mg2 - Immunization history:: Adult Immunizations. - Social history:: Smoking status: . - Ebola Screening: : Patient denies travel to an Ebola-affected area in the 21 days before illness onset. - Family history:: not pertinent. - Hospitalizations: : No recent hospitalization is reported. Screenin:29 Abuse screen: Denies threats or abuse. Nutritional screening: No deficits noted. tw2 Nutritional screening: No deficits noted. Tuberculosis screening: No symptoms or risk factors identified. Fall Risk Secondary diagnosis (15 points) impaired mobility. Assessment: 12:47 General: Appears in no apparent distress. comfortable, Behavior is calm, cooperative. mg2 Pain: Complains of pain in abdomen Pain does not radiate. Pain currently is 10 out of 10 on a pain scale. Quality of pain is described as aching, sharp, Pain began gradually, Is intermittent. Neuro: Level of Consciousness is awake, alert, obeys commands, Oriented to person, place, time, situation. Cardiovascular: Capillary refill < 3 seconds Patient's skin is warm and dry. Respiratory: Airway is patent Respiratory effort is even, unlabored, Respiratory pattern is regular, symmetrical. GI: Reports lower abdominal pain, upper abdominal pain, nausea, vomiting. : No signs and/or symptoms were reported regarding the genitourinary system. EENT: No signs and/or symptoms were reported regarding the EENT system. Derm: Skin is intact, is healthy with good turgor, Skin is pink, warm \T\ dry. normal. Musculoskeletal: Circulation, motion, and sensation intact. Capillary refill. 14:18 Reassessment: Patient appears in no apparent distress at this time. Patient and/or em family updated on plan of care and expected duration. Pain level reassessed. Patient is alert, oriented x 3, equal unlabored respirations, skin warm/dry/pink. reports pain is 7/10, request to hold off on medication Patient states feeling better. 15:01 Reassessment: Patient appears in no apparent distress at this time. Patient and/or em family updated on plan of care and expected duration. Pain level reassessed. Patient is alert, oriented x 3, equal unlabored respirations, skin warm/dry/pink. Patient states feeling better. 15:10 Reassessment: attempted to assist pt to wheelchair to collect UA, reports feeling dizzy em and weak, provider notified, received verbal orders for straight cath., rates pain 8/10. 16:31 Reassessment: Patient appears in no apparent distress at this time. Patient and/or em family updated on plan of care and expected duration. Pain level reassessed. Patient is alert, oriented x 3, equal unlabored respirations, skin warm/dry/pink. 17:30 Reassessment: Patient appears in no apparent distress at this time. Patient and/or em family updated on plan of care and expected duration. Pain level reassessed. Patient is alert, oriented x 3, equal unlabored respirations, skin warm/dry/pink. resting comfortably with eyes closed, respirations even and unlabored, family at bedside. 18:36 Reassessment: initiated transfer to [facility]. Physician denies transfer. Dr. Mary ss speaking with Dr. Richards again. 19:00 General: Appears in no apparent distress. Behavior is calm, cooperative, appropriate ea for age. Pain: Complains of pain in abdomen. Neuro: Level of Consciousness is awake, alert, obeys commands, Oriented to person, place, situation. Cardiovascular: Patient's skin is warm and dry. Respiratory: Airway is patent Respiratory effort is even, unlabored, Respiratory pattern is regular, symmetrical. Derm: Skin is pink, warm \T\ dry. normal. 21:07 Reassessment: Report called to Receiving nurse on second floor. ea 21:30 Reassessment: Patient and/or family updated on plan of care and expected duration. Pain ea level reassessed. Patient is alert, oriented x 3, equal unlabored respirations, skin warm/dry/pink. Pt admitted to second floor, pt left ED via stretcher per tech, accompanied by family. Pt tolerating well. Vital Signs: 12:34 Pulse 75; Resp 18; Temp 98; Pulse Ox 100% on R/A; Weight 60.78 kg; Height 5 ft. 4 in. mg2 (162.56 cm); 13:00 BP 141 / 86; em 14:18 BP 140 / 93; Pulse 93; Resp 18; Pulse Ox 99% on R/A; Pain 7/10; em 15:02 BP 142 / 99; Pulse 85; Resp 19; Pulse Ox 95% on R/A; Pain 6/10; em 15:53 BP 137 / 98; Pulse 92; Resp 19; Pulse Ox 97% on R/A; Pain 9/10; em 16:31 BP 141 / 97; Pulse 99 RA; Resp 20; Pulse Ox 96% on R/A; em 17:30 BP 152 / 98; Pulse 97; Resp 18; Pulse Ox 99% on R/A; em 18:30 BP 142 / 87; Pulse 91; Resp 18; Pulse Ox 93% on R/A; em 19:30 BP 140 / 94; Pulse 104; Resp 18; Pulse Ox 95% on 2 lpm NC; ea 20:30 BP 147 / 94; Pulse 92; Resp 18; Temp 97.8; Pulse Ox 95% on 2 lpm NC; ea 21:00 BP 120 / 62; Pulse 87; Resp 19; Pulse Ox 96% on 2 lpm NC; ea 12:34 Body Mass Index 23.00 (60.78 kg, 162.56 cm) mg2 ED Course: 12:29 Patient arrived in ED. mg2 12:30 Arm band placed on. tw2 12:33 Drake Mary MD is Attending Physician. wa 12:33 Triage completed. mg2 12:35 Patient has correct armband on for positive identification. Pulse ox on. NIBP on. Door mg2 closed. Warm blanket given. 12:35 No provider procedures requiring assistance completed. Maintain EMS IV. Dressing mg2 intact. Good blood return noted. Site clean \T\ dry. Gauge \T\ site: 22 \T\ LAC. 12:45 Jamie Gagnon LVN is Primary Nurse. em 19:37 Simone Nowak MD is Hospitalizing Provider. wa 21:30 Patient admitted, IV remains in place. ea Administered Medications: 13:22 Drug: NS 0.9% 1000 ml Route: IV; Rate: 1 bolus; Site: left antecubital; em 13:23 Drug: Pepcid 20 mg Route: IVP; Site: left antecubital; ss 14:02 Follow up: Response: No adverse reaction em 13:24 Drug: Zofran 4 mg Route: IVP; Site: left antecubital; ss 14:02 Follow up: Response: No adverse reaction; Nausea is decreased em 13:27 Drug: morphine 2 mg Route: IVP; Site: left antecubital; ss 14:00 Follow up: Response: No adverse reaction; Pain is unchanged, physician notified em 14:02 Drug: Tylenol 1000 mg Route: PO; em 15:03 Follow up: Response: No adverse reaction; Pain is decreased em 15:30 Drug: morphine 2 mg Route: IVP; Site: left antecubital; em 16:02 Follow up: Response: No adverse reaction; Marked relief of symptoms; Pain is decreased; em RASS: Alert and Calm (0) 16:02 Drug: Ativan 0.5 mg Route: IVP; Site: left antecubital; ss 16:29 Follow up: Response: No adverse reaction; Marked relief of symptoms; Pain is decreased em 20:15 Not Given (daughter refused medicaiton): fentaNYL (PF) 50 mcg IVP once; RASS on ADMIN: ea Combtv4, Very Agttd3, Agttd2, Rstlss1, AlertClm0, Drwsy-1, Lt Sdtn-2, Mod Sdtn-3, Dp Sdtn-4, UnArsble-5 20:17 Drug: morphine 4 mg {Note: RASS 1.} Route: IVP; Site: left antecubital; ea 21:00 Follow up: Response: No adverse reaction; Pain is decreased; RASS: Alert and Calm (0) ea Outcome: 19:38 Decision to Hospitalize by Provider. wa 20:00 Instructed on the need for admit, Demonstrated understanding of instructions. ea 21:28 Condition: stable ea 21:29 Admitted to Med/surg accompanied by tech, via stretcher, with oxygen, with chart, ea Report called to Receiving nurse on second floor 21:38 Patient left the ED. ea Signatures: Jamie Gagnon, ASSISTANT PROFESSOR OF SOCIOLOGY ASSISTANT PROFESSOR OF SOCIOLOGY Kym Caldera RN RN Devora Jo RN RN tw2 Hanna Vega RN RN ea Appiah, William, MD MD de Francisco Brower RN RN mg2 Corrections: (The following items were deleted from the chart) 12:35 12:29 Care prior to arrival: None. mg2 mg2
--- NOTE | 2019-11-01 19:41 | EDPHYS ---
Physician Documentation [facility] Name: Pilar Bass Age: 74 yrs Sex: Female : 1945 Arrival Date: 11/01/2019 Time: 12:29 Bed 25 Private MD: ED Physician Drake Mary HPI: 11/01 13:36 This 74 yrs old Female presents to ER via EMS with complaints of abdominal wa pain. 13:36 The patient presents with abdominal pain in the epigastric area, in the upper abdomen. wa Onset: The symptoms/episode began/occurred 8 month(s) ago, worse the past 3 days. The symptoms do not radiate. Associated signs and symptoms: Pertinent positives: diarrhea. The symptoms are described as achy. Modifying factors: The symptoms are alleviated by nothing, the symptoms are aggravated by nothing. Severity of pain: At its worst the pain was moderate in the emergency department the pain is unchanged. The patient has experienced similar episodes in the past, chronically. The patient has not recently seen a physician. per daughter, pt has memory problems. c/o abd pain since February. has had upper and lower endoscopy with negative findings. this episode noted since yesterday. pt admits to diarrhea and vomiting although her daughter denies diarrhea. Historical: - Allergies: 12:36 Lodine; mg2 12:36 ambien; mg2 - Home Meds: 13:13 diltiazem HCl 240 mg Oral CDER 1 cap once daily [Active]; metoprolol tartrate 100 mg mg2 Oral tab 1 tab 2 times per day [Active]; pantoprazole 40 mg oral TbEC [Active]; levothyroxine 175 mcg tab 1 tab once daily [Active]; losartan 50 mg oral tab 1 tab once daily [Active]; ropinirole 0.25 mg oral tab [Active]; furosemide Oral [Active]; Zofran Oral [Active]; Sumatriptan Sub-Q [Active]; Eliquis 5 mg oral tab 1 tab 2 times per day [Active]; - PMHx: 12:36 CHF; mg2 - PSHx: 12:36 Tummy tuck; mg2 - Immunization history:: Adult Immunizations. - Social history:: Smoking status: . - Ebola Screening: : Patient denies travel to an Ebola-affected area in the 21 days before illness onset. - Family history:: not pertinent. - Hospitalizations: : No recent hospitalization is reported. ROS: 13:43 Constitutional: Negative for fever, chills, and weight loss, Eyes: Negative for injury, wa pain, redness, and discharge, ENT: Negative for injury, pain, and discharge, Neck: Negative for injury, pain, and swelling, Cardiovascular: Negative for chest pain, palpitations, and edema, Respiratory: Negative for shortness of breath, cough, wheezing, and pleuritic chest pain, Back: Negative for injury and pain, : Negative for injury, bleeding, discharge, and swelling, MS/Extremity: Negative for injury and deformity, Skin: Negative for injury, rash, and discoloration, Neuro: Negative for headache, weakness, numbness, tingling, and seizure. 13:43 Abdomen/GI: Positive for abdominal pain, nausea, diarrhea, Negative for vomiting. 13:43 All other systems are negative. Exam: 13:43 Constitutional: This is a well developed, well nourished patient who is awake, alert, wa and in no acute distress. Head/Face: Normocephalic, atraumatic. Eyes: Pupils equal round and reactive to light, extra-ocular motions intact. Lids and lashes normal. Conjunctiva and sclera are non-icteric and not injected. Cornea within normal limits. Periorbital areas with no swelling, redness, or edema. ENT: Nares patent. No nasal discharge, no septal abnormalities noted. Tympanic membranes are normal and external auditory canals are clear. Oropharynx with no redness, swelling, or masses, exudates, or evidence of obstruction, uvula midline. Mucous membranes moist. Neck: Trachea midline, no thyromegaly or masses palpated, and no cervical lymphadenopathy. Supple, full range of motion without nuchal rigidity, or vertebral point tenderness. No Meningismus. Chest/axilla: Normal chest wall appearance and motion. Nontender with no deformity. No lesions are appreciated. Cardiovascular: Regular rate and rhythm with a normal S1 and S2. No gallops, murmurs, or rubs. Normal PMI, no JVD. No pulse deficits. Respiratory: Lungs have equal breath sounds bilaterally, clear to auscultation and percussion. No rales, rhonchi or wheezes noted. No increased work of breathing, no retractions or nasal flaring. Back: No spinal tenderness. No costovertebral tenderness. Full range of motion. Skin: Warm, dry with normal turgor. Normal color with no rashes, no lesions, and no evidence of cellulitis. MS/ Extremity: Pulses equal, no cyanosis. Neurovascular intact. Full, normal range of motion. Neuro: Awake and alert, GCS 15, oriented to person, place, time, and situation. Cranial nerves II-XII grossly intact. Motor strength 5/5 in all extremities. Sensory grossly intact. Cerebellar exam normal. Normal gait. Psych: Awake, alert, with orientation to person, place and time. Behavior, mood, and affect are within normal limits. 13:43 Abdomen/GI: Inspection: abdomen appears normal, Bowel sounds: normal, in all quadrants, Palpation: moderate abdominal tenderness, in the epigastric area, right upper quadrant and left upper quadrant. Vital Signs: 12:34 Pulse 75; Resp 18; Temp 98; Pulse Ox 100% on R/A; Weight 60.78 kg; Height 5 ft. 4 in. mg2 (162.56 cm); 13:00 BP 141 / 86; em 14:18 BP 140 / 93; Pulse 93; Resp 18; Pulse Ox 99% on R/A; Pain 7/10; em 15:02 BP 142 / 99; Pulse 85; Resp 19; Pulse Ox 95% on R/A; Pain 6/10; em 15:53 BP 137 / 98; Pulse 92; Resp 19; Pulse Ox 97% on R/A; Pain 9/10; em 16:31 BP 141 / 97; Pulse 99 RA; Resp 20; Pulse Ox 96% on R/A; em 17:30 BP 152 / 98; Pulse 97; Resp 18; Pulse Ox 99% on R/A; em 18:30 BP 142 / 87; Pulse 91; Resp 18; Pulse Ox 93% on R/A; em 19:30 BP 140 / 94; Pulse 104; Resp 18; Pulse Ox 95% on 2 lpm NC; ea 20:30 BP 147 / 94; Pulse 92; Resp 18; Temp 97.8; Pulse Ox 95% on 2 lpm NC; ea 21:00 BP 120 / 62; Pulse 87; Resp 19; Pulse Ox 96% on 2 lpm NC; ea 12:34 Body Mass Index 23.00 (60.78 kg, 162.56 cm) mg2 MDM: 12:33 Patient medically screened. md 13:44 Differential diagnosis: bowel obstruction, cholecystitis, Cholelithiasis, gastritis, wa non-specific abd pain, pancreatitis, urinary tract infection. 18:04 Data reviewed: vital signs, nurses notes. Test interpretation: by ED physician or wa midlevel provider: EKG: interp by ut: HR 77. LAD. LBBB. diffuse ST-T changes. very different from previous EKG from 2010 which was sinus tach, nml axis. no BBB. 18:06 Test interpretation: by ED physician or midlevel provider: labs noted for hyperglycemia wa at 189. K at 3.3. low H/H at 10.3/32.3. BNP 37019. CXR: Mild bilateral interstitial lung opacities. mildly enlarged heart. . Response to treatment: the patient's symptoms have mildly improved after treatment. ED course: normal lactate. nml. UA no UTI. L kidney noted for peripheral low density, may indicate pyelonephritis or inflammation. . 18:11 ED course: significant pain that required a couple rounds of pain meds. pt finally got wa comfortable with a dose od Ativan. spoke with hospitalist for admit. 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 of noted pt with mild CHF as well. 18:34 ED course: spoke with vascular surgeon Dr. Hendricks at [facility]. states the finding is wa incidental and shd not cause pt's current symptoms of abd pain so declined the transfer. 19:36 Physician consultation: Simone Nowak MD. md 11/01 12:29 Order name: Basic Metabolic Panel mg2 11/01 12:29 Order name: CBC with Diff mg2 11/01 12:29 Order name: Creatinine for Radiology mg2 11/01 12:29 Order name: Hepatic Function mg2 11/01 12:29 Order name: Lipase mg2 11/01 13:00 Order name: Magnesium md 11/01 13:00 Order name: NT PRO-BNP md 11/01 13:00 Order name: PT-INR md 11/01 13:00 Order name: Troponin (emerg Dept Use Only) md 11/01 13:08 Order name: Creatinine (Radiology Only); Complete Time: 14:58 EDMS 11/01 13:08 Order name: Basic Metabolic Panel; Complete Time: 14:58 EDMS 11/01 13:08 Order name: Liver (Hepatic) Function; Complete Time: 14:58 EDMS 11/01 13:08 Order name: Lipase; Complete Time: 14:59 EDMS 11/01 13:10 Order name: CBC with Automated Diff; Complete Time: 14:58 EDMS 11/01 13:00 Order name: XRAY Chest (1 view) md 11/01 13:09 Order name: CT Abd/Pelvis - IV Contrast Only md 11/01 13:46 Order name: CBC Smear Scan; Complete Time: 14:59 EDMS 11/01 13:48 Order name: Protime (+INR); Complete Time: 14:59 EDMS 11/01 13:50 Order name: Troponin (Emerg Dept Use Only); Complete Time: 14:01 EDMS 11/01 13:50 Order name: NT PRO-BNP; Complete Time: 14:59 EDMS 11/01 13:50 Order name: Magnesium; Complete Time: 14:59 EDMS 11/01 14:29 Order name: CT; Complete Time: 14:59 EDMS 11/01 14:29 Order name: RAD; Complete Time: 14:58 EDAR 11/01 15:02 Order name: Urine Microscopic Only md 11/01 15:02 Order name: Urine Culture md 11/01 15:14 Order name: Lactate md 11/01 15:32 Order name: Urine Dipstick--Ancillary (enter results) 11/01 15:57 Order name: Urine Microscopic Only; Complete Time: 16:58 EDMS 11/01 15:58 Order name: Urine Dipstick-Ancillary; Complete Time: 16:58 EDAR 11/01 16:05 Order name: Lactate; Complete Time: 16:58 EDAR 11/01 12:29 Order name: IV Saline Lock; Complete Time: 12:39 mg2 11/01 12:29 Order name: Labs collected and sent; Complete Time: 12:39 mg2 11/01 13:00 Order name: EKG; Complete Time: 13:02 md 11/01 13:00 Order name: Cardiac monitoring; Complete Time: 13:12 md 11/01 13:00 Order name: EKG - Nurse/Tech; Complete Time: 13:12 md 11/01 13:00 Order name: O2 Sat Monitoring; Complete Time: 13:12 md 11/01 15:02 Order name: Urine Dipstick-Ancillary (obtain specimen); Complete Time: 15:37 md 11/01 15:17 Order name: Straight Cath; Complete Time: 15:37 em Administered Medications: 13:22 Drug: NS 0.9% 1000 ml Route: IV; Rate: 1 bolus; Site: left antecubital; em 13:23 Drug: Pepcid 20 mg Route: IVP; Site: left antecubital; ss 14:02 Follow up: Response: No adverse reaction em 13:24 Drug: Zofran 4 mg Route: IVP; Site: left antecubital; ss 14:02 Follow up: Response: No adverse reaction; Nausea is decreased em 13:27 Drug: morphine 2 mg Route: IVP; Site: left antecubital; ss 14:00 Follow up: Response: No adverse reaction; Pain is unchanged, physician notified em 14:02 Drug: Tylenol 1000 mg Route: PO; em 15:03 Follow up: Response: No adverse reaction; Pain is decreased em 15:30 Drug: morphine 2 mg Route: IVP; Site: left antecubital; em 16:02 Follow up: Response: No adverse reaction; Marked relief of symptoms; Pain is decreased; em RASS: Alert and Calm (0) 16:02 Drug: Ativan 0.5 mg Route: IVP; Site: left antecubital; ss 16:29 Follow up: Response: No adverse reaction; Marked relief of symptoms; Pain is decreased em 20:15 Not Given (daughter refused medicaiton): fentaNYL (PF) 50 mcg IVP once; RASS on ADMIN: ea Combtv4, Very Agttd3, Agttd2, Rstlss1, AlertClm0, Drwsy-1, Lt Sdtn-2, Mod Sdtn-3, Dp Sdtn-4, UnArsble-5 20:17 Drug: morphine 4 mg {Note: RASS 1.} Route: IVP; Site: left antecubital; ea 21:00 Follow up: Response: No adverse reaction; Pain is decreased; RASS: Alert and Calm (0) ea Disposition: 11/01/19 19:38 Hospitalization ordered by Simone Nowak for Observation. Preliminary diagnosis are abdominal pain, CHF. - Bed requested for Telemetry/MedSurg (observation). - Status is Observation. ea - Condition is Stable. - Problem is new. - Symptoms have improved. UTI on Admission? No Signatures: Dispatcher [employer] EDJamie De La Torre, DEPUTY SHERIFF CHIEF DEPUTY SHERIFF CHIEF Kym Caldera, RN RN ss Devora Jo RN RN tw2 Hanna Vega RN RN ea Drake Mary MD MD wa Gardose, Michele, RN RN Ho Delgado, RN RN rv Corrections: (The following items were deleted from the chart) 20: 19:38 Hospitalization Ordered by Simone Nowak MD for Observation. Preliminary rv diagnosis is abdominal pain; CHF. Bed requested for Telemetry/MedSurg (observation). Status is Observation. Condition is Stable. Problem is new. Symptoms have improved. UTI on Admission? No. md 21:38 20:27 11/01/2019 19:38 Hospitalization Ordered by Simone Nowak MD for Observation. ea Preliminary diagnosis is abdominal pain; CHF. Bed requested for Telemetry/MedSurg (observation). Status is Observation. Condition is Stable. Problem is new. Symptoms have improved. UTI on Admission? No. rv
[2019-11-01] MEDS ORDERED: MORPHINE 4 MG/ML SYR IV PRN (20:07)
[2019-11-01] MEDS ORDERED: ACETAMINOPHEN 500 MG TAB PO PRN (20:07)
[2019-11-01] MEDS ORDERED: ONDANSETRON 4 MG/2 ML VIAL IV PRN (20:07)
[2019-11-01] MEDS ORDERED: FENTANYL CITR 100 MCG/2 ML ONE (20:07)
[2019-11-01] MEDS ORDERED: MORPHINE 4 MG/ML SYR ONE (20:13)
[2019-11-01] MEDS ORDERED: clonazePAM 0.5 MG TAB PO SCH (21:00)
[2019-11-01] MEDS ORDERED: nadoloL 40 MG TAB PO SCH (21:00)
[2019-11-01] MEDS ORDERED: VENLAFAXINE HCL XR 75 MG CAP PO SCH (21:00)
[2019-11-01] MEDS ORDERED: PREGABALIN 150 MG CAP PO SCH (21:00)
[2019-11-01] MEDS ORDERED: NA CHLORIDE 0.9% 1,000 ML IV SCH (21:00)
[2019-11-01] MEDS ORDERED: QUETIAPINE 25 MG TAB PO SCH (21:00)
[2019-11-01 22:17] VITALS: O2SAT 96
[2019-11-01 22:23] VITALS: BMI 24.0
[2019-11-02 01:04] VITALS: TEMP 97.6
[2019-11-02 05:41] LABS: Absolute Lymphocytes (CBC) 0.6 K/uL (0.7-4.9); Basophils % 0.3 % (0-1.3); Lymphocytes % 2.8 % (15.3-44.8); MPV 8.7 fL (7.6-11.3); RBC Red Blood Cell Count 3.79 M/uL (3.86-4.86)
[2019-11-02 06:21] LABS: Protime INR 4.99
[2019-11-02 06:22] LABS: Albumin 3.2 g/dL (3.4-5.0); Bilirubin Total 1.5 mg/dL (0.2-1.0); Potassium 4.2 mmol/L (3.5-5.1); Protein, Total 6.1 g/dL (6.4-8.2)
[2019-11-02] MEDS ORDERED: LEVOTHYROXINE SOD 0.1 MG TAB PO SCH (06:30)
[2019-11-02] MEDS ORDERED: SODIUM BICARB 50 MEQ/50ML VIAL ONE ×2 (06:35→06:39)
[2019-11-02] MEDS ORDERED: D5W 1,000 ML IV ONE (06:35)
[2019-11-02 06:43] LABS: Arterial Blood Carboxyhemoglob 1.1 % (0-1.5); Blood Gas Oxyhemoglobin 95.4 % (94-97); Blood O2 Saturation 98.1 % (92-98.5)
[2019-11-02] MEDS ORDERED: D5W 1,000 ML with NA BICARB 8.4% 50 MEQ IV SCH ×2 (07:00)
[2019-11-02] MEDS ORDERED: CEFEPIME 1 GM/VIAL IV SCH (07:17)
--- NOTE | 2019-11-02 07:30 | P.HP ---
Certification for Inpatient Patient admitted to: Inpatient With expected LOS: >2 Midnights Patient will require the following post-hospital care: None Practitioner: I am a practitioner with admitting privileges, knowledge of patient current condition, hospital course, and medical plan of care. Services: Services provided to patient in accordance with Admission requirements found in Title 42 Section 412.3 of the Code of Federal Regulations Patient History Date of Service: 11/01/19 Reason for admission: Abdominal pain out of proportion to CT scan findings History of Present Illness: Patient is a 74-year-old female who is been dealing with some abdominal issues for the last few months. These have been getting progressively worse. She saw a GI in [place] and had any EGD and a colonoscopy performed. These did not reveal any significant abnormalities. Will try to get records from there office. Patient also had findings the required and aortogram to be performed. No further interventions were recommended after the aortogram. This was done by cardiology, Dr. Crowley. Will also need to get records for this as well. Yesterday patient has seen a neurologist. She was acting forgetful and confused regarding some issues. She was also seeing things that were not there. She saw Dr. Evans, and at this time no further treatment was recommended. Patient has also seen pulmonary Dr. Feliciano because of her respiratory issues. She gets really tachypneic at times and a sleep study was ordered for this. Patient has numerous medical issues, but we have not been able to figure out exactly what is causing a lot of her symptoms. She was admitted at our facility after speaking to vascular surgery at [facility]. They recommended outpatient follow-up for celiac artery stenosis seen on CT scan. We spoke to our local GI who recommended observation of patient it did transferring was difficult which it has been. Will admit the patient to our hospital for further evaluation and try to figure out exactly what is causing her symptoms. Allergies iodine Allergy (Verified 11/01/19 22:01) UNK zolpidem tartrate [From Ambien] Allergy (Verified 11/01/19 22:01) UNK Home Medications: Cholecalciferol (Vitamin D3) [D3 Dots] 2,000 units PO DAILY 11/01/13 Clonazepam 0.5 mg PO BEDTIME 11/01/13 Doxazosin [Cardura*] 2 mg PO BEDTIME 11/01/13 Multivit-Minerals/Folic/Ginkgo [One Daily Women's 50+ Tablet] 1 each PO DAILY Quetiapine [Seroquel*] 50 mg PO BEDTIME 11/01/13 Sumatriptan 100 mg PO PRN 11/01/13 Thyroid,Pork [Herron Thyroid] 180 PO [id number] 11/01/13 Venlafaxine HCl [Effexor XR] 150 mg PO BID 11/01/13 lisinopriL [Prinivil*] 20 mg PO DAILY 11/01/13 Baclofen [Lioresal*] 10 mg PO 0800 #0 tab 11/07/13 Ciprofloxacin HCl [Cipro*] 500 mg PO BID #0 tab 11/07/13 Hydrocodone 5/APAP 325 [[place] 5/325*] 1 tab PO Q4H PRN #0 tab 11/07/13 Nadolol [Corgard*] 80 mg PO BID #0 tab 11/07/13 Pregabalin [Lyrica] 150 mg PO BID #0 cap 11/07/13 Rivaroxaban [Xarelto*] 10 mg PO DAILY #30 tablet 11/07/13 traMADol HCL [Ultram*] 50 mg PO Q4H PRN #0 tab 11/07/13 - Past Medical/Surgical History Has patient received pneumonia vaccine in the past: Yes Diabetic: No -: HTN -: HYPOTHYROID -: FIBROMYALGIA -: MIGRAINS -: CHRONIC BACK PAIN -: DEPRESSION -: GASTRIC BYPASS -: APPENDECTOMY -: KNEE ARTHROSCOPY -: CHOLECYSTECTOMY -: HYSTERECTOMY -: HAND surgery - Family History Father Family History: Reviewed- Non-Contributory - Social History Smoking Status: Never smoker Alcohol use: No CD- Drugs: No Caffeine use: Yes Place of Residence: Home Review of Systems 10-point ROS is otherwise unremarkable Physical Examination - Vital Signs Temperature: 97.6 F Blood Pressure: 128/93 Pulse: 122 Respirations: 16 Pulse Ox (%): 93 - Physical Exam General: Alert, Mild distress, Confused, Other (Having some abdominal discomfort ) HEENT: Atraumatic, PERRLA, Mucous membr. moist/pink, EOMI, Sclerae nonicteric Neck: Supple, 2+ carotid pulse no bruit, No LAD, Without JVD or thyroid abnormality Respiratory: Clear to auscultation bilaterally, Normal air movement Cardiovascular: Regular rate/rhythm, Normal S1 S2, No murmurs Gastrointestinal: Normal bowel sounds, Soft and benign, Non-distended, Tenderness (Minimal tenderness but not really able to localize the degree of tenderness) Musculoskeletal: No clubbing, No swelling, No tenderness Integumentary: No rashes Neurological: Normal speech, Normal tone, Sensation intact, Cranial nerves 3-12 intact, Abnormal gait, Abnormal strength, Dementia Lymphatics: No axilla or inguinal lymphadenopathy - Studies Laboratory Data (last 24 hrs) 11/01/19 13:20: PT 38.1 H, INR 3.38 11/01/19 13:20: Magnesium 2.2 11/01/19 12:37: Creatinine 1.17 11/01/19 12:37: WBC 10.7, Hgb 10.3 L, Hct 32.3 L, Plt Count 328 11/01/19 12:37: Sodium 132 L, Potassium 3.3 L, BUN 27 H, Creatinine 1.18, Glucose 189 H, Total Bilirubin 0.8, AST 38 H, ALT 44, Alkaline Phosphatase 91, Lipase 329 Assessment & Plan - Problems (Diagnosis) (1) Abdominal pain Current Visit: Yes Status: Acute (2) Confusion Current Visit: Yes Status: Acute (3) Chronic pain disorder Current Visit: Yes Status: Acute (4) Fibromyalgia Current Visit: Yes Status: Acute (5) Atrial fibrillation Current Visit: Yes Status: Acute (6) Celiac artery stenosis Current Visit: Yes Status: Acute - Plan PLAN: 1. GENTLE HYDRATION 2. MONITOR LABS CLOSELY 3. PAIN CONTROL 4. ANTI EMETICS 5. ECHOCARDIOGRAM 6. MRI OF THE ABDOMEN 7. RECHECK PT INR; NO HISTORY OF LIVER DISEASE BUT LAB ABNORMALITIES SUGGESTIVE OF SOME LIVER DISORDER 8. CHECK REPEAT LACTATE LEVEL SECONDARY TO CONCERNS FOR BOWEL ISCHEMIA 9. CHECK PROCALCITONIN WELL WORKUP FOR ANEMIA Discharge Plan: Home Plan to discharge in: Greater than 2 days - Advance Directives Does patient have a Living Will: No Does patient have a Durable POA for Healthcare: No - Code Status/Comfort Care Code Status Assessed: Yes Code Status: Full Code Critical Care: No Time Spent Managing PTS Care (In Minutes): 45
--- NOTE | 2019-11-02 07:41 | P.PN ---
Date of Service: 11/02/19 I was called because patient mentation was little altered, and she was in pain. Patient's CO2 has come back very low as well. We did an ABG which revealed metabolic acidosis. Spoke with daughter who informed me that abdominal pain has been pretty significant for 1 month. patient has been going into [facility] but they have not found any abnormalities. (A month ago before this event, patient had been very active. She had been driving around, and she had been visiting with her daughter a month ago. However, since her abdominal pain has gotten progressively worse she has not been traveling or eating as much-200kcal/ daily). She has also been suffering from pain. She used to take narcotics, but she no longer takes her narcotics. She was using the hydrocodone regularly up until 2-3 weeks ago when she stopped. This am her labs are coming back extremely worrisome. She has a leukocytosis, elevated LFTs, elevated INR, and severe metabolic acidosis(most likely lactic acidosis). Will cover her with antibiotics to cover a GI infection she has been having some abdominal discomfort. Will try to order a MRI by of the abdomen today but if not able to do will at least get a chest x-ray to evaluate for free air and any kind of pneumonic processes. I did speak to her daughter and she updated me on a lot of her medical issues. Concern for acute liver failure/ ischemic colitis. This could also explain the metabolic acidosis especially if lactate is elevated. Will consult GI and Pulmonary as well as Neurology. Patient will need extensive workup in the hospital, and afterwards we can work on placement at that time if patient recovers medically.
--- NOTE | 2019-11-02 07:55 | EKG ---
Test Date: 2019-11-01 Test Time: 13:12:16 Financial Compliance Officer: SRAVANTHI MEASUREMENT RESULTS: Intervals: Rate: 77 MA: QRSD: 142 QT: 398 QTc: 450 [place]: P: MA: QRS: -43 T: 131 INTERPRETIVE STATEMENTS: Atrial fibrillation Left axis deviation Left bundle branch block Abnormal ECG Compared to ECG 11/11/2011 09:59:38 Left-axis deviation now present Left bundle-branch block now present Sinus tachycardia no longer present Electronically Signed On 11-02-19 07:54:44 CONTROL PANEL TESTER by Orion Klein
[2019-11-02] MEDS ORDERED: DILTIAZEM INJ 125 MG in NA CHLORIDE 0.9% 100 ML IVPB PRN (07:59)
[2019-11-02] MEDS ORDERED: BACLOFEN 10 MG TAB PO SCH (08:00)
[2019-11-02] MEDS ORDERED: CEFEPIME/SWI 1gm 10 ML IV SCH (08:00)
[2019-11-02 08:15] LABS: Anisocytosis 1+; Blood Morphology Comment NOTED (NOT SEEN); Burr Cells 1+; Ovalocytes 1+; Platelet Estimate ADEQ
[2019-11-02] MEDS ORDERED: Pharmacy Consult 1 EA XX PRN (08:40)
[2019-11-02] MEDS: FENTANYL CITR 100 MCG/2 ML IV PRN ×2 (08:54→09:47)
[2019-11-02] MEDS ORDERED: RIVAROXABAN 10 MG TABLET PO SCH (09:00)
[2019-11-02] MEDS ORDERED: VANCOMYCIN/NS 1 gm 1 GM/250 ML BAG IV SCH (09:00)
[2019-11-02] MEDS ORDERED: DILTIAZEM HCL 180 MG SR CAP PO SCH ×2 (09:00)
[2019-11-02] MEDS ORDERED: VITAMIN K (ADULT) 10 MG/ML SQ ONE (09:00)
[2019-11-02] MEDS ORDERED: APIXABAN 2.5 MG TABLET PO SCH (09:00)
--- NOTE | 2019-11-02 09:06 | RAD REPORT ---
EXAM DESCRIPTION: RAD - Chest Single View - 11/02/2019 8:59 am CLINICAL HISTORY: free air; dyspnea Chest pain. COMPARISON: Chest Single View dated 11/01/2019; CHEST SINGLE VIEW dated 11/11/2011; CHEST PA AND LAT 2 VIEW dated 02/20/2002; Abdomen Pelvis W Contrast dated 11/01/2019 FINDINGS: Portable technique limits examination quality. The lungs are underinflated with haziness in the left lung base which may be related to a small left pleural effusion. The heart is upper limit normal in size. No evidence of pneumoperitoneum.Hardware p late is present cervical spine.
[2019-11-02] MEDS ORDERED: HALOPERIDOL LACT 5 MG/ML INJ IV PRN (09:16)
[2019-11-02 09:39] LABS: Arterial Blood Carboxyhemoglob 1.2 % (0-1.5); Blood Gas Oxyhemoglobin 94.6 % (94-97); Blood O2 Saturation 97.4 % (92-98.5)
[2019-11-02 10:04] LABS: Folic Acid, (Folate) > 20.0 ng/mL (3.1-17.5)
--- NOTE | 2019-11-02 10:21 | ECHO ---
HEIGHT: 5 ft 4 in WEIGHT: 127 lb 1 oz DATE OF STUDY: 11/02/[address]: Simone Nowak MD 2-DIMENSIONAL: YES M.MODE: YES DOPPLER: YES COLOR FLOW: YES TDS: PORTABLE: DEFINITY: BUBBLE STUDY: DIAGNOSIS: CONGESTIVE HEART FAILURE CARDIAC HISTORY: CATHERIZATION: SURGERY: PROSTHETIC VALVE: PACEMAKER: MEASUREMENTS (cm) DIASTOLIC (NORMALS) SYSTOLIC (NORMALS) IVSd 1.2 (0.6-1.2) LA Diam 3.5 (1.9-4.0) LVEF 40-45% LVIDd 3.8 (3.5-5.7) LVIDs 3.1 (2.0-3.5) %FS 18% LVPWd 1.1 (0.6-1.2) Ao Diam 2.5 (2.0-3.7) 2 DIMENSIONAL ASSESSMENT: RIGHT ATRIUM: NORMAL LEFT ATRIUM: NORMAL RIGHT VENTRICLE: NORMAL LEFT VENTRICLE: NORMAL TRICUSPID VALVE: NORMAL MITRAL VALVE: NORMAL PULMONIC VALVE: NORMAL AORTIC VALVE: NORMAL PERICARDIAL EFFUSION: NONE AORTIC ROOT: NORMAL LEFT VENTRICULAR WALL MOTION: SEPTAL AKINESIS, MID AND DISTAL DOPPLER/COLOR FLOW: MILD AORTIC, MITRAL AND TRICUSPID REGURGITATION. ESTIMATED RIGHT VENTRICULAR SYSTOLIC PRESSURE 35 mmHg (NORMAL). COMMENTS: DEPRESSED LEFT VENTRICULAR EJECTION FRACTION WITH WALL MOTION ABNORMALITY. MILD AORTIC, MITRAL AND TRICUSPID REGURGITATION. TECHNOLOGIST: ALEXA COLÓN
[2019-11-02] MEDS ORDERED: NA CHLORIDE 0.9% 500 ML IV ONE (11:36)
[2019-11-02] MEDS ORDERED: NOREPINEPHRINE 4 MG in D5W 250 ML IV PRN (11:36)
[2019-11-02] MEDS ORDERED: METRONIDAZOLE 250mg IVPB 250 MG/50 ML BAG IV SCH (12:00)
[2019-11-02 12:05] LABS: Potassium 4.3 mmol/L (3.5-5.1)
--- NOTE | 2019-11-02 12:13 | P.PN ---
Subjective Date of Service: 11/02/19 Chief Complaint: Abdominal pain out of proportion to CT scan findings Patient seen very confused and moaning. Heart rate up to 120 to 130s She was transferred to the ICU overnight. Patient noted to be acidotic, pH of 7.1, INR increased to 4.99, now has severe leukocytosis. Case discussed with Dr. Reyes and Dr. Feliciano. Dr. Reyes went through the CT images with the radiologist and determined that she does not have SMA stenosis but complete stenosis of the celiac artery. Urine culture is growing E. coli. I met with the daughter who stated patient is DNI and DNR. I discussed poor prognosis with her and she stated she will consider comfort care option given her prognosis. Physical Examination - Vital Signs Temperature: 97.6 F Blood Pressure: 66/31 Pulse: 93 Respirations: 25 Pulse Ox (%): 93 - Physical Exam General: Moderate distress, Confused HEENT: PERRLA Neck: JVD not distended Respiratory: Clear to auscultation bilaterally, Normal air movement Cardiovascular: No edema, Irregular heart rate/rhythm Gastrointestinal: Normal bowel sounds, Non-distended, Tenderness Musculoskeletal: No swelling Integumentary: No rashes Neurological: Other (She is confused. She moves all extremities spontaneously.) - Studies Laboratory Data (last 24 hrs) 11/02/19 05:22: Sodium 137, Potassium 4.2, BUN 32 H, Creatinine 1.80 H, Glucose 91, Total Bilirubin 1.5 H, AST 91 H, ALT 58, Alkaline Phosphatase 106 11/02/19 05:22: PT 55.3 H, INR 4.99 H*, APTT 25.9 11/02/19 05:22: WBC 20.9 H* D, Hgb 10.0 L, Hct 34.0 L, Plt Count 276 11/01/19 13:20: PT 38.1 H, INR 3.38 11/01/19 13:20: Magnesium 2.2 11/01/19 12:37: Creatinine 1.17 11/01/19 12:37: WBC 10.7, Hgb 10.3 L, Hct 32.3 L, Plt Count 328 11/01/19 12:37: Sodium 132 L, Potassium 3.3 L, BUN 27 H, Creatinine 1.18, Glucose 189 H, Total Bilirubin 0.8, AST 38 H, ALT 44, Alkaline Phosphatase 91, Lipase 329 Assessment And Plan - Current Problems (Diagnosis) (1) Sepsis Current Visit: Yes Status: Acute (2) Elevated INR Current Visit: Yes Status: Acute (3) UTI (urinary tract infection) Current Visit: Yes Status: Acute (4) Acute metabolic encephalopathy Current Visit: Yes Status: Acute (5) Atrial fibrillation with RVR Current Visit: Yes Status: Acute (6) Metabolic acidosis Current Visit: Yes Status: Acute (7) Celiac artery stenosis Current Visit: Yes Status: Acute - Plan Patient clinical picture is consistent with severe sepsis and possible DIC. Aggressive antibiotic therapy-IV cefepime, vancomycin and Flagyl Follow blood cultures Follow urine culture organism sensitivities. Aggressive IV hydration. Bicarb drip. Vasopressors as needed Fresh frozen plasma and subcutaneous vitamin K to reverse INR. General surgery and pulmonology input appreciated. Haldol IV p.r.n. for agitation. Pain management as needed Poor prognosis Daughter is made aware of poor prognosis. Patient is DNR and DNI. She is considering comfort measures as an option.
[2019-11-02] MEDS ORDERED: D50W 25 GM/50 ML SYRINGE/VIAL IV ONE (12:21)
--- NOTE | 2019-11-02 12:47 | RAD REPORT ---
EXAM DESCRIPTION: RAD - Chest Single View - 11/02/2019 12:36 pm CLINICAL HISTORY: PICC line placement COMPARISON: November 02 FINDINGS: Portable chest was obtained following placement of a right upper extremity PICC line. The catheter tip is in the right atrium. Retraction of the PICC line [address] the tip in the SVC.
[2019-11-02 13:29] VITALS: BP 33/18
[2019-11-02 13:55] LABS: Magnesium 2.7 mg/dL (1.8-2.4)
[2019-11-02] MEDS ORDERED: METOPROLOL TAR 50 MG TAB PO SCH (18:00)
[2019-11-02] MEDS ORDERED: METOPROLOL TAR 25 MG TAB PO SCH ×2 (18:00)
--- NOTE | 2019-11-02 18:08 | P.DS ---
Admission Date: 11/02/19 Discharge Date: 11/02/19 Disposition: Discharge Condition: Reason for Admission: Abdominal pain out of proportion to CT scan findings Consultations: General surgery Pulmonary - Problems (1) Sepsis Status: Acute (2) Elevated INR Status: Acute (3) UTI (urinary tract infection) Status: Acute (4) Acute metabolic encephalopathy Status: Acute (5) Atrial fibrillation with RVR Status: Acute (6) Metabolic acidosis Status: Acute (7) Celiac artery stenosis Status: Acute Brief History of Present Illness: 74-year-old female with multiple medical problems was brought to the emergency department due to an episode of abdominal pain. According to the daughter, the patient has been experiencing this abdominal pain for about 4 months. He saw a semiconductor equipment technician and a director long term care, had EGD and colonoscopy performed as well as an aortogram. According to the daughter, thecause of the abdominal pain was not identified. CT abdomen and pelvis in the ED demonstrated some air filled nondilated bowel, and incidental high-grade celiac stenosis. An attempt was made to transfer her to a tertiary facility to be evaluated by a vascular surgeon. Vascular surgeon at [facility] Dr. Rosales stated high-grade celiac stenosis should not be responsible for patient's abdominal pain, and patient not accepted for transfer. Gastroenterologists was contacted who recommended MRA of the abdomen to look for other vascular disease in the abdomen given the high likelihood of ischemic bowel. Her lactic acid level was normal in the ED. Her daughter denied any bloody bowel movement. Patient was subsequently admitted for further management. Hospital Course: UA suggested the presence of UTI. She was started on aggressive antibiotic therapy and IV hydration. She later became more lethargic, blood work suggested metabolic acidosis, she develops severe leukocytosis and mental status got worse. Patient was transferred to the ICU, and treated aggressively w, with IV hydration, aggressive antibiotic therapy. Her daughter who mentioned she is the [facility] [place] confirmed patient is DNI and DNR. She was evaluated by general surgery , patient was suspected to have severe sepsis given elevated INR, worsening hyperbilirubinemia, severe leukocytosis. Lactic acid became markedly elevated. Her clinical condition declined rapidly, she developed hypotension and later developed asystole and . Vital Signs/Physical Exam: Temp Pulse Resp BP Pulse Ox 97.6 F 138 H 0 L 33/18 L 93 11/02/19 12:23 11/02/19 13:00 11/02/19 12:45 11/02/19 13:00 11/02/19 12:23 Laboratory Data at Discharge: WBC 20.9 K/uL (4.3-10.9) H* D 11/02/19 05:22 Hgb 10.0 g/dL (12.0-15.0) L 11/02/19 05:22 Hct 34.0 % (36.0-45.0) L 11/02/19 05:22 Plt Count 276 K/uL (152-406) 11/02/19 05:22 PT 55.3 SECONDS (9.5-12.5) H 11/02/19 05:22 INR 4.99 H* 11/02/19 05:22 APTT 25.9 SECONDS (24.3-36.9) 11/02/19 05:22 Sodium 141 mmol/L (136-145) 11/02/19 11:20 Potassium 4.3 mmol/L (3.5-5.1) 11/02/19 11:20 BUN 34 mg/dL (7-18) H 11/02/19 11:20 Creatinine 2.34 mg/dL (0.55-1.3) H 11/02/19 11:20 Glucose 13 mg/dL (74-106) L* 11/02/19 11:20 Phosphorus 9.0 mg/dL (2.5-4.9) H* 11/02/19 12:50 Magnesium 2.7 mg/dL (1.8-2.4) H D 11/02/19 12:50 Total Bilirubin 1.5 mg/dL (0.2-1.0) H 11/02/19 05:22 AST 91 U/L (15-37) H 11/02/19 05:22 ALT 58 U/L (12-78) 11/02/19 05:22 Alkaline Phosphatase 106 U/L (45-117) 11/02/19 05:22 Lipase 329 U/L (73-393) 11/01/19 12:37 Home Medications: Cholecalciferol (Vitamin D3) [D3 Dots] 2,000 units PO DAILY 11/01/13 Clonazepam 0.5 mg PO BEDTIME 11/01/13 Doxazosin [Cardura*] 2 mg PO BEDTIME 11/01/13 Multivit-Minerals/Folic/Ginkgo [One Daily Women's 50+ Tablet] 1 each PO DAILY Quetiapine [Seroquel*] 50 mg PO BEDTIME 11/01/13 Sumatriptan 100 mg PO PRN 11/01/13 Thyroid,Pork [[place] Thyroid] 180 PO [id number] 11/01/13 Venlafaxine HCl [Effexor XR] 150 mg PO BID 11/01/13 lisinopriL [Prinivil*] 20 mg PO DAILY 11/01/13 Baclofen [Lioresal*] 10 mg PO 0800 #0 tab 11/07/13 Ciprofloxacin HCl [Cipro*] 500 mg PO BID #0 tab 11/07/13 Hydrocodone 5/APAP 325 [[place] 5/325*] 1 tab PO Q4H PRN #0 tab 11/07/13 Nadolol [Corgard*] 80 mg PO BID #0 tab 11/07/13 Pregabalin [Lyrica] 150 mg PO BID #0 cap 11/07/13 Rivaroxaban [Xarelto*] 10 mg PO DAILY #30 tablet 11/07/13 traMADol HCL [Ultram*] 50 mg PO Q4H PRN #0 tab 11/07/13
[2019-11-02] MEDS ORDERED: ROPINIROLE HCL 0.25 MG TAB PO SCH (21:00)
--- NOTE | 2019-11-02 21:52 | P.CNS ---
Date of Consult: 11/02/19 Reason for Consult: Respiratory distress acute abdomen Chief Complaint: Respiratory distress History of Present Illness: Patient is 74 years of age has been having some abdominal discomfort for a number of months seeing the numerous specialist including GI and Cardiology had an aortogram performed becoming rather forgetful confused and in to the hospital was little short of breath suddenly deteriorated developed respiratory distress altered mental status came very hypoxic acidotic. Patient's condition rapidly deteriorated in she became hypotensive discuss with the relatives the did not want her to undergo CPR Patient is unresponsive significant distress Allergies iodine Allergy (Verified 11/01/19 22:01) UNK zolpidem tartrate [From Ambien] Allergy (Verified 11/01/19 22:01) UNK Home Medications: Cholecalciferol (Vitamin D3) [D3 Dots] 2,000 units PO DAILY 11/01/13 Clonazepam 0.5 mg PO BEDTIME 11/01/13 Doxazosin [Cardura*] 2 mg PO BEDTIME 11/01/13 Multivit-Minerals/Folic/Ginkgo [One Daily Women's 50+ Tablet] 1 each PO DAILY Quetiapine [Seroquel*] 50 mg PO BEDTIME 11/01/13 Sumatriptan 100 mg PO PRN 11/01/13 Thyroid,Pork [[place] Thyroid] 180 PO [id number] 11/01/13 Venlafaxine HCl [Effexor XR] 150 mg PO BID 11/01/13 lisinopriL [Prinivil*] 20 mg PO DAILY 11/01/13 Baclofen [Lioresal*] 10 mg PO 0800 #0 tab 11/07/13 Ciprofloxacin HCl [Cipro*] 500 mg PO BID #0 tab 11/07/13 Hydrocodone 5/APAP 325 [[place] 5/325*] 1 tab PO Q4H PRN #0 tab 11/07/13 Nadolol [Corgard*] 80 mg PO BID #0 tab 11/07/13 Pregabalin [Lyrica] 150 mg PO BID #0 cap 11/07/13 Rivaroxaban [Xarelto*] 10 mg PO DAILY #30 tablet 11/07/13 traMADol HCL [Ultram*] 50 mg PO Q4H PRN #0 tab 11/07/13 - Past Medical/Surgical History Diabetic: No -: HTN -: HYPOTHYROID -: FIBROMYALGIA -: MIGRAINS -: CHRONIC BACK PAIN -: DEPRESSION -: GASTRIC BYPASS -: APPENDECTOMY -: KNEE ARTHROSCOPY -: CHOLECYSTECTOMY -: HYSTERECTOMY -: HAND surgery - Family History Father Family History: Reviewed- Non-Contributory - Social History Smoking Status: Never smoker Alcohol use: No CD- Drugs: No Caffeine use: Yes Place of Residence: Home Review of Systems is unable to be obtained Physical Examination Temp Pulse Resp BP Pulse Ox 97.6 F 138 H 0 L 33/18 L 93 11/02/19 12:23 11/02/19 13:00 11/02/19 12:45 11/02/19 13:00 11/02/19 12:23 General: Severe distress Respiratory: Clear to auscultation bilaterally, Diminished Cardiovascular: No edema, Regular rate/rhythm Gastrointestinal: Tenderness, Guarding Laboratory Data (last 24 hrs) 11/02/19 05:22: Sodium 137, Potassium 4.2, BUN 32 H, Creatinine 1.80 H, Glucose 91, Total Bilirubin 1.5 H, AST 91 H, ALT 58, Alkaline Phosphatase 106 11/02/19 05:22: PT 55.3 H, INR 4.99 H*, APTT 25.9 11/02/19 05:22: WBC 20.9 H* D, Hgb 10.0 L, Hct 34.0 L, Plt Count 276 - Problems (1) Septic shock Status: Acute Plan: Patient is 74 years of age deteriorated suddenly altered mental status presume septic shock urinalysis is positive blood cultures are pending developed multiorgan failure with renal dysfunction abnormal liver function tests elevated white count severe metabolic acidosis chest x-ray clear discuss with radiology in general surgery 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
[2019-11-06 19:25] LABS: HBsAG Nonreactive (Nonreactive)
--- NOTE | 2019-11-30 21:35 | CON ---
Date of Consultation: 11/02/2019 Brief History Of Present Illness: Patient is a 74-year-old female, who comes to the hospital with a known history of celiac artery stenosis. She has been seeing GI, Cardiology, had an aortogram and ca me to the hospital with altered mental status, respiratory distress, acidosis. She was admitted on 01/02. She had an EGD and colonoscopy performed, which by report of family did not reveal any abnorma lities. Records are not available, however, at this time. She has been seeing a neurologist as well , Dr. Evans for forgetfulness as of late and saw Dr. Feliciano for respiratory issues. She was compla ining of generalized abdominal pain, but it was out of proportion to her physical exam as her abdomin al exam was unimpressive by report. Past Medical History: Significant for hypertension, hypothyroidism, fibromyalgia, migraines, chronic back pain, depression, celiac artery stenosis. Past Surgical History: Gastric bypass surgery, appendectomy, knee arthroscopy, cholecystectomy, hyst erectomy, hand surgery. She denies smoking, alcohol, recreational drug use. Home Medications: Vitamin D3, clonazepam, Cardura, multivitamin, Seroquel, sumatriptan, [place] Thyro id, Effexor, Prinivil, baclofen, Cipro, [place], Corgard, Lyrica, Xarelto, and Ultram. Review of Systems: 10-point review of systems other than in HPI, patient was confused, unable to give me a complete hist ory of these other bits of information. Family was present at the bedside and gave me the remainder of the information of the events leading up to this particular admission. Physical Examination: Vital Signs: At the time of my examination, her vital signs were a BMI of 21.8. Her blood pressure was 66/31, pulse was 93, respiratory rate 25. Her pain level varied between 0 and 10. Abdomen: Focused examination of the abdomen her abdominal, exam was benign. She had no tenderness, no rebound, no guarding, no focal peritoneal signs. She was awake during the examination on a non-re breather. Laboratory Data: Revealed a white blood cell count of 20.9, hemoglobin 10.0, hematocrit 34.0, platel et count was 276, neutrophils are 92%. Bands were 13. PT was 55.3. INR on admission was 3.38, PTT is 25.9. Her pH was 7.18, pCO2 is 24, PO2 is 272, HC03 was 8.8, her base excess was -18 on 100% oxyg en. Sodium 141, potassium 4.3, chloride 102, carbon dioxide 11, BUN 34, creatinine 2.4, glucose was 13, blood sugar was 89, lactic acid was 15.1, calcium 7.8, total bilirubin was 1.5, direct component 0.3, AST 91, ALT 58, alkaline phosphatase was 106. Ammonia level was 24. C-reactive protein was 14. ProBNP 25,273. Lipase is 329. Vitamin B12 was greater than 2000, folate was greater than 20. Pro calcitonin 2.93. UA showed 20/50 bacteria and 2+ protein. She had a CT scan performed of the abdome n and pelvis, which was officially read as heterogeneous hepatic density, may be related to passive c ongestion, high-grade stenosis of the celiac artery, air within nondilated small bowel may indicate e nteritis. Mild low-density area within the periphery of the left kidney may indicate pyelonephritis inflammation. I personally reviewed the CT scan with the radiologist and found that there was no denise dence of SMA occlusion and there appeared to be no evidence of bowel ischemia based on imaging findin and her clinical exam, however, was concerning. Assessment And Plan: This is a 74-year-old female with multiorgan dysfunction and possible impending organ failure of an uncertain etiology. She likely has pyelonephritis in addition to enteritis and other medical comorbidities. She is currently unstable and receiving pressor support and as such she is a suboptimal operative candidate, however, I have explained the risks, benefits, and alternatives of exploratory laparotomy to the patient's family and they have stated that the patient would not stevens bmit to any surgical procedures and as such they refused to the consent for any surgical procedures a nd have stated that the patient would rather be a DNR status and not escalate care at this point. As such, I will remain available, but patient and family have stated they do not want any surgical inte rvention at this time. I will be available should they change or reconsider and will check on the patient daily should she be optimized for a surgical procedure. DANIEL/MARYSOL Voice ID: [id number] Report ID: [id number]
== END 2019-11-02 12:46 | disposition expired | DRG 871 ==
LOC: ER 12:26 → ERHOLD 20:07 → 2ND 21:07 → 3RD-ICU 11-02 06:58 → OBSVTOIN 11-02 07:23
PROVIDERS: ADMIT Hospitalist; ATTEND Internal Medicine
DX: A41.9 Sepsis, unspecified organism (principal); G93.41 Metabolic encephalopathy; D65 Disseminated intravascular coagulation [defibrination syndrome]; R65.21 Severe sepsis with septic shock; I77.4 Celiac artery compression syndrome; E87.2 Acidosis; N10 Acute pyelonephritis; R65.20 Severe sepsis without septic shock; B96.20 Unspecified Escherichia coli [E. coli] as the cause of diseases classified elsewhere; I10 Essential (primary) hypertension; E03.9 Hypothyroidism, unspecified; M79.7 Fibromyalgia; G89.29 Other chronic pain; I48.91 Unspecified atrial fibrillation; R06.03 Acute respiratory distress; Z66 Do not resuscitate; K52.9 Noninfective gastroenteritis and colitis, unspecified
CPT/HCPCS: 36415; 71045; 74177; 80048; 80053; 80074; 80076; 81003; 81015; 82140; 82607; 82746; 82805; 82947; 83540; 83605; 83690; 83735; 83880; 84100; 84145; 84484; 85025; 85610; 85652; 85730; 86140; 87040; 87086; 87088; 93005; 93306; 96374; 96375; 99285; G0378; J0692; J1630; J2270; J2405; J3010; J3370; J3430; J7030; J7040; J7060; Q9967